=== PATIENT | male | born 1950 | race Caucasian/White ===

== ENCOUNTER → 2017-08-08 | Outpatient (CLI) | payer OTHER ==
[2015-11-04 16:30] VITALS: BP 105/48
[~2017-08-08] MED LIST: ASCO100065 PO; CHOL10003 PO; CIPR500T94 PO; CYAN50LO PO; FERR-36 PO
--- NOTE | 2017-08-08 15:33 | KCIC ---
MRI of the cervical spine without contrast 08/08/2017 CLINICAL HISTORY: Neck pain which radiates down the left arm. TECHNIQUE: Unenhanced T1-weighted, T2-weighted and inversion recovery sagittal and gradient echo and T2-weighted axial images of the cervical spine were obtained. FINDINGS: Minimal lateral curvature of the cervical spine is seen convex to the right. There is mild straightening of the normal cervical lordosis. Degenerative signal changes are seen involving all of the disks of the cervical spine. Degenerative signal changes are seen within the marrow surrounding these discs. A 4 mm hemangioma is seen involving the C3 vertebral body. The cervical spinal cord is normal in morphology, position, and signal characteristics. At the C2-3 disc space there is a minimal generalized disc bulge. Degenerative changes are seen involving the uncovertebral and facet joints bilaterally. These findings do not result in significant central spinal canal or neural foraminal stenosis. At the C3-4 disc space there is a mild generalized disc bulge. Degenerative changes are seen involving the uncovertebral and facet joints, left greater than right. These findings do not result in significant central spinal canal stenosis. Mild left neural foraminal stenosis is seen. The right neural foramen is patent. At the C4-5 disc space there is a mild generalized disc bulge. Degenerative changes are seen involving the uncovertebral and facet joints, left greater than right. These findings do not result in significant central spinal canal stenosis. Mild left neural foraminal stenosis is seen. The right neural foramen is patent. At the C5-6 disc space there is a mild generalized disc bulge. Degenerative changes are seen involving the uncovertebral and facet joints, left greater than right. These findings do not result in significant central spinal canal stenosis. Mild left neural foraminal stenosis is seen. The right neural foramen is patent. At the C6-7 disc space there is a mild generalized disc bulge. Degenerative changes are seen involving the uncovertebral and facet joints, left greater than right. These findings when combined do not result in significant central spinal canal or neural foraminal stenosis. At the C7-T1 disc space there is a minimal generalized disc bulge. Degenerative changes are seen involving the uncovertebral and facet joints bilaterally. These findings do not result in significant central spinal canal or neural foraminal stenosis. IMPRESSION: Degenerative changes are seen involving the cervical spine. These findings do not result in significant central spinal canal stenosis at any level. Mild left neural foraminal stenosis is seen at C3-4, C4-5 and C5-6. Electronically signed by: Quan Kinney MD (08/08/2017 3:30 PM) [facility]
== END | disposition home or self-care (01) ==
LOC: KCIC MRI 09:43
PROVIDERS: ATTEND Family Medicine
DX: M54.12 Radiculopathy, cervical region (principal); M48.02 Spinal stenosis, cervical region
CPT/HCPCS: 72141

== ENCOUNTER 2018-11-15 10:25 | Inpatient (IN) | payer OTHER ==
[~2018-11-15] VITALS: Ht 177.8 cm; Wt 54.9 kg
[2018-11-15 12:16] VITALS: BP 139/62
--- NOTE | 2018-11-15 13:48 | HP ---
ADMIT DATE: 11/15/2018 HISTORY OF PRESENT ILLNESS: The patient is a 68-year-old male patient, who was seen originally at [facility] with a complaint of weight loss over the last several months. His weight has been around 140 throughout his life and has been stable around 130 lately and then he lost. As of yesterday, his weight was down to 119. Has generalized weakness and pain. He has shortness of breath, but has also had cough. His sternum is painful, has also constipation. He has had a CT scan of the chest and abdomen and pelvis. The patient has been bedridden, has difficulty moving around. He has extreme tightness in his groin bilaterally, in the upper thighs and inguinal area, making difficult for him to walk. He apparently was extensively investigated and has had a CT scan of the abdomen and pelvis. The CT scan of the chest with PE protocol showed no evidence of pulmonary emboli. There are new small left and trace right pleural effusions, irregular opacity with air bronchogram in the left upper lobe that is stable, he has moderate central lobular emphysema. New mild consolidation in the posterior right lower lobe is probably atelectasis. He has had a bone scan, which basically showed that the patient has diffuse increased uptake seen involving the sternum, anterior ribcage, costal cartilage and the sternoclavicular joints and medial aspect of the clavicle corresponding to the chest CT finding. The chest CT finding demonstrates expansion of the sternum with cortical thinning; therefore, this may be seen with Paget's disease. In retrospect, CT study of the pelvis demonstrates small radiolucent lesions of the iliac bones bilaterally, no abnormal uptake is seen on the bone scan; however, multiple myeloma or early osseous metastatic disease may not demonstrate increased uptake on bone scan, MRI study of the pelvis without contrast may be helpful to evaluate for infiltrative process of the pelvic bone versus osteoporosis. His chest x-ray showed that the patient has emphysema with pleural parenchymal scarring on the left, his old healed granulomatous disease in the anterior chest, mild left suprahilar opacities are better delineated on the recent CT scan. He has had lab work which showed a serum sodium 134, potassium 4.1, chloride 96, bicarbonate 28, anion gap of 10, BUN 11, creatinine 0.7, estimated GFR was 111 and glucose was 138, lactic acid is 1.4, calcium was 8.9. Total bilirubin, AST, ALT, alkaline were normal. C-reactive protein was extremely high at 178 mg/dL. Total protein was 7.4, albumin 2.2. Procalcitonin was less than 0.1. TSH was 5.775. His serum sodium was 131, potassium 4.1, chloride 94. His urinalysis essentially showed the urine was annalise-clear; negative for glucose, bilirubin; trace of ketones; specific gravity was 1.020; the pH was 6 with small amount for protein; negative for nitrite and leukocyte esterase; there are no rbc's and no wbc's. His D-dimer was high at 1.15 mg/dL. His white cell count was 12,100; hemoglobin 12; hematocrit 36; MCV 87; and platelet count of 426,000. The patient was transferred to [facility] for further evaluation and treatment. I will obviously consult the wind turbine performance engineer, oncologist and urologist as well as tour sales representative. I will arrange for him to have a pelvic MRI without contrast. PAST MEDICAL HISTORY: Significant for COPD as well as benign prostatic hypertrophy. He has also elevated PSA, although he has multiple biopsies of his prostate for prostate cancer, were negative, the last one was done by his urologist last August at [facility]. He has about 29 specimens, all of them were negative for prostate cancer. PAST SURGICAL HISTORY: Surgical treatment of Achilles tendon rupture on the left side and multiple prostate biopsies. ALLERGIES: He has no known drug allergies. MEDICATIONS: He is currently on following medications: He is on ciprofloxacin 500 mg twice a day, ferrous sulfate 325 mg once a day, cyanocobalamin or vitamin B12 50 mcg daily, ascorbic acid 1000 mg daily and cholecalciferol 1000 international units once a day. FAMILY HISTORY: Unremarkable. SOCIAL HISTORY: He is , lives with his . He quit smoking only recently. He does not drink alcohol or do recreational drugs. He worked for [employer] for more than 20 years. He also worked for [employer] and currently works for [employer]. REVIEW OF SYSTEMS: The patient denied any blurring of vision, cataract, glaucoma or macular degeneration. Denied any earache, tinnitus or sensorineural deafness. Denied any nosebleeds, stuffy nose or postnasal drip. Denied any sore throat, sore tongue, toothache, hoarseness of voice or difficulty swallowing. Denied any nausea, vomiting, or diarrhea, but did complain of constipation. Denied any hematemesis, melena or hematochezia. Denied any dysuria, frequency or hematuria. He did complain of chest pain, mostly in the lower sternum which is very tender to touch, but denied any orthopnea or paroxysmal nocturnal dyspnea. Denied any cough, phlegm or hemoptysis. Denied any chills, rigors or fever. PHYSICAL EXAMINATION: GENERAL: When I examined him this afternoon, he looked well and was clearly in no apparent respiratory distress. No pallor, jaundice, cyanosis, or thyromegaly. No jugular venous distension. No lower limb edema. VITAL SIGNS: His heart rate was 72, blood pressure was 139/62, temperature was 97.5, respiratory rate was 24, and oxygen saturation was 95% on 2 liters of oxygen. HEAD, EYES, EARS, NOSE AND THROAT: Showed normocephalic, atraumatic. NECK: Supple, with no lymphadenopathy, no thyromegaly. No jugular venous distension, no audible bruit. HEART: Showed normal first and second heart sounds. No gallop or murmur. CHEST: Shows central trachea, equally reduced expansion, reduced air entry, vesicular sounds. I could not appreciate any crepitation or rhonchi. ABDOMEN: Slightly distended, soft, nontender. No guarding or rigidity. No organomegaly. All hernial orifices intact. Bowel sounds normal. NEUROLOGIC: He is awake, alert, responding appropriately. All cranial nerves intact. He moves extremities without difficulty. He is very weak and easily fatigued, but he normally ambulates without assistance or assistive devices. LABORATORY DATA: His lab work and all imaging studies are in the beginning of this report. IMPRESSION: In summary, this is a 68-year-old male patient who was admitted with extreme weakness and easy fatigability, weight loss and has elevated PSA, has enlarged prostate; however, multiple biopsies done at different times were negative for prostate cancer. His CT scan of the chest with PE protocol showed that the lower end of the sternum is expanding with thin cortex, consistent with possible Paget's disease; however, he has also some abnormal finding in the pelvic bones without any uptake by the radioisotope that would be consistent with multiple myeloma or metastatic disease. PLAN: My plan is to consult the urologist, wind turbine performance engineer, as well as tour sales representative and repeat his labs again tomorrow. We will continue with his Flomax, his IV fluid and also start DVT prophylaxis in the form of Lovenox or SCDs. LUCIE AGUIRRE MD DR: ARJUN/dwight JOB#: [id number] / [id number]
--- NOTE | 2018-11-15 13:52 | PDOC2 ---
ADAM SOARES SHAMIR 11/15/18 1352: UROLOGY CONSULT Date of Consult Date of Consult DATE: 11/15/18 TIME: 13:38 Identification/Chief Complaint Chief Complaint Patient was transferred from [place] for the Source Source: Chart review, Patient History of Present Illness Reason for Visit: This 68 year old male was admitted to [place] for weight loss, shortness of breath and generalized weakness. He was transferred here by Dr. Chatterjee for further workup. Urology was consulted for a PSA of 20.5 on 11/14/18 done at [place]. Per the patient, his PSA range is anywhere between 17 and 22. For this, he has been seeing a Urologist in [place] for the past 5 years and has had 4-5 prostate biopsies done,all of which have been negative. He is just about due for his yearly Urology exam. To his knowledge, he has never had an MRI of his prostate. Despite his high PSA's he does not have significant LUTS. He has some mild nocturia, getting up 1-2 times at night, but denies incomplete emptying, difficulty with his stream, daytime frequency, dysuria or hematuria. His father did have prostate cancer and is not sure what his mother had, but thinks it may have been bladder cancer. He denies a history of kidney stones and denies lower abd/flank pain. Most of his pain is currently in his sternum and he does feel SOB at rest despite NC 02 supplementation. Past Medical History Renal/: Benign prostatic enlarg. Social History <1 pack per day ALCOHOL: none Drugs: None Lives: with Family Current Problem List Problems: (1) Elevated PSA Current Medications Current Medications Current Medications Docusate Sodium (Colace) 100 mg BID PO ; Start 11/15/18 at 21:00 Enoxaparin Sodium (Lovenox 40mg Syringe) 40 mg Q24H SQ ; Start 11/15/18 at 13:00 Multivitamins (Thera M Plus) 1 tab DAILY PO ; Start 11/16/18 at 09:00 Polyethylene Glycol (miraLAX PACKET) 17 gm DAILY PO ; Start 11/16/18 at 09:00 Tamsulosin HCl (Flomax) 0.4 mg QHS PO ; Start 11/15/18 at 21:00 Allergies Allergies: Coded Allergies: No Known Drug Allergies (Unverified , 11/04/15) ROS Review Of Systems: CONSTITUTIONAL: No fever or chills EYES: No recent changes SKIN: No rash or itching CARDIOVASCULAR: No chest pain, syncope, palpitations, or edema RESPIRATORY: + SOB at rest GASTROINTESTINAL: No nausea, vomiting or abdominal pain NEUROLOGICAL: No headaches or weakness ENDOCRINE: No cold or heat intolerance GENITOURINARY: No urgency or frequency of urination, + hx elevated PSA MUSCULOSKELETAL: No back pain or joint pain LYMPHATICS: No enlarged lymph nodes PSYCHIATRIC: No anxiety or depression Physical Exam Physical Exam: General: Pleasant, no acute distress, well groomed Eyes: conjunctiva anicteric, eyes full range of motion ENT: moist oral mucosa, normal dentition Neck: Trachea midline, no masses Respiratory: regular respirations, NC in place. Barrel shaped chest Abdomen: nontender, nondistended, no hepatosplenomegaly, no masses : Circ phallus, WNL. MARU 60 g prostate Skin: + moles on sternum, one is quarter sized Psych: normal mood, affect. Alert and oriented x 3. Vitals VITALS Vital Signs Date Time Temp Pulse Resp B/P (MAP) Pulse Ox O2 Delivery O2 Flow Rate FiO2 11/15/18 12:16 97.5 72 24 139/62 (87) 95 Nasal Cannula 2.0 97.5 Assessment/Plan Assessment/Plan Elevated PSA 20.5 (range of 17-22 per patient report) with history of 4-5 negative prostate biopsies Bone scan done at [place] shows no abnormal uptake seen on the pelvis in the bone scan. CT demonstrates small radiolucent lesions of the iliac bones bilaterally. Dr. Chatterjee has already ordered MRI of the pelvis, agree.[facility] does not have necessary equipment do to an MRI of the prostate. Continue Flomax while in house Dr. Jimenez aware of patient and will see him later today or tomorrow. IAM JIMENEZ MD 11/17/18 1610: UROLOGY CONSULT Assessment/Plan Assessment/Plan Agree with assessment and plan. See note from 11/17. ADAM SOARES APRN Nov 15, 2018 13:52 IAM JIMENEZ MD Nov 17, 2018 16:10
[2018-11-15 15:00] VITALS: BP 131/64
--- NOTE | 2018-11-15 18:01 | PDOC2 ---
CONSULT Date of Consult Date of Consult DATE: 11/15/18 TIME: 17:59 He is a 68-year-old man with weight loss and sternal pain and bone findings concerning for Paget's versus malignancy versus other and is currently getting an MRI of the pelvis. He was not available for me to evaluate today, I will return on Sunday morning, if anything is needed over the weekend please don't hesitate to call the on-call physician however I would recommend based on his imaging after MRI of the pelvis is done to consult IR for biopsy potentially of the sternum or something else that they may determine best based on imaging ( bone marrow if myeloma labs +), I will also order SPEP with BENNY, kappa lambda chains, quantitative immunoglobulins and defer the rest of his care to primary at the moment. Would also recommend quitting smoking but again I will see him on Sunday to finish evaluation. Thank you kindly, and again please don't hesitate to call with any further questions. Past Medical History Renal/: Benign prostatic enlarg. Social History <1 pack per day ALCOHOL: none Drugs: None Lives: with Family Current Medications Current Medications Current Medications Enoxaparin Sodium (Lovenox 40mg Syringe) 40 mg Q24H SQ ; Start 11/15/18 at 13:00 Docusate Sodium (Colace) 100 mg BID PO ; Start 11/15/18 at 21:00 Polyethylene Glycol (miraLAX PACKET) 17 gm DAILY PO ; Start 11/16/18 at 09:00 Tamsulosin HCl (Flomax) 0.4 mg QHS PO ; Start 11/15/18 at 21:00 Multivitamins (Thera M Plus) 1 tab DAILY PO ; Start 11/16/18 at 09:00 Active Scripts Active Reported Vitamin B-12 (Cyanocobalamin (Vitamin B-12)) 50 Mcg Lozenge 50 Mcg PO DAILY Iron (Ferrous Sulfate) 325 Mg Tablet 325 Mg PO DAILY Cipro (Ciprofloxacin Hcl) 500 Mg Tablet 1 Tab PO BID Vitamin C (Ascorbic Acid) 1,000 Mg Tab.chew 1,000 Mg PO DAILY Vitamin D3 (Cholecalciferol (Vitamin D3)) 1,000 Unit Tablet 1 Tab PO DAILY Allergies Allergies: Coded Allergies: No Known Drug Allergies (Unverified , 11/04/15) Vitals VITALS Vital Signs Date Time Temp Pulse Resp B/P (MAP) Pulse Ox O2 Delivery O2 Flow Rate FiO2 3/15/19 15:00 97.4 79 18 131/64 (86) 97 Nasal Cannula 2.0 97.4 SUKH CARBAJAL MD Nov 15, 2018 18:01
[2018-11-15] MEDS: ENOXAPARIN 40 MG/0.4 ML SYRINGE. SQ SCH (18:34)
--- NOTE | 2018-11-15 18:34 | NUR ---
LOVENOX NOT GIVEN, PATIENT STATED HE ALREADY RECEIVED A DOSE AT [facility].
[2018-11-15 19:00] VITALS: BP 136/62
[2018-11-15] MEDS ORDERED: HYDROcodone/APAP 5/325MG 1 TAB TABLET PO PRN (19:45)
[2018-11-15] MEDS ORDERED: guaiFENesin DM 200MG/20MG 10 ML SYRUP PO PRN (19:45)
[2018-11-15] MEDS ORDERED: ACETAMINOPHEN 325 MG TABLET. PO PRN (19:45)
[2018-11-15] MEDS ORDERED: ALBUTEROL SULFATE 2.5 MG/3 ML NEBU. NEB PRN (20:45)
[2018-11-15] MEDS: TAMSULOSIN 0.4 MG CAP.ER.24H. PO SCH (20:46)
[2018-11-15] MEDS: DOCUSATE SODIUM 100 MG CAPSULE. PO SCH (20:46)
[2018-11-15] MEDS: ZOLPIDEM 5 MG TABLET. PO PRN (20:46)
[2018-11-15] MEDS: IPRATRPIUM/ALBUTEROL 0.5/2.5MG 3 ML NEBU. NEB SCH (21:17)
[2018-11-15 23:00] VITALS: BP 138/65
[2018-11-16 03:00] VITALS: BP 132/62
[2018-11-16 03:03] LABS: BASO % 0 % (0-3); EOS # 0.1 x10^3/uL (0.0-0.7); EOS % 1 % (0-3); HEMATOCRIT 36.4 % (39.0-53.0); HEMOGLOBIN 11.8 g/dL (13.0-17.5); LYMPH # 0.9 x10^3/uL (1.0-4.8); LYMPH % 8 % (24-48); MEAN CORPUSCULAR HEMOGLOBIN 29 pg (25-35); MEAN CORPUSCULAR HGB CONC 32 g/dL (31-37); MEAN CORPUSCULAR VOLUME 88 fL (79-100); MONO # 0.8 x10^3/uL (0.0-1.1); MONO % 7 % (0-9); NEUT # 9.4 x10^3uL (1.8-7.7); NEUT % 83 % (31-73); PLATELET COUNT 438 x10^3/uL (140-400); RED BLOOD COUNT 4.14 x10^6/uL (4.30-5.70); RED CELL DISTRIBUTION WIDTH 14.1 % (11.5-14.5); WHITE BLOOD COUNT 11.3 x10^3/uL (4.0-11.0)
[2018-11-16 03:36] LABS: ALBUMIN 1.9 g/dL (3.4-5.0); ALBUMIN/GLOBULIN RATIO 0.4 (1.0-1.7); CALCIUM 8.7 mg/dL (8.5-10.1); CREATININE 0.6 mg/dL (0.7-1.3); GFR 133.6; POTASSIUM 3.8 mmol/L (3.5-5.1); TOTAL BILIRUBIN 0.3 mg/dL (0.2-1.0); TOTAL PROTEIN 7.2 g/dL (6.4-8.2)
[2018-11-16 07:00] VITALS: BP 129/59
[2018-11-16] MEDS: IPRATRPIUM/ALBUTEROL 0.5/2.5MG 3 ML NEBU. NEB SCH ×4 (08:02→19:07)
[2018-11-16] MEDS: DOCUSATE SODIUM 100 MG CAPSULE. PO SCH ×2 (08:23→20:56)
[2018-11-16] MEDS: POLYETHYLENE GLYCOL 3350 17 GM PACKET. PO SCH (08:23)
[2018-11-16] MEDS: MULTIVITAMIN with MINERAL TABLET. PO SCH (08:23)
[2018-11-16 10:44] VITALS: BP 117/75
--- NOTE | 2018-11-16 13:06 | PN ---
DATE: 11/16/2018 SUBJECTIVE: The patient is sitting in his chair, eating his lunch comfortably, in no apparent distress. He denied any pain. He was seen yesterday by the Urology team as well as the oncologist. Has had an MRI done; however, there is no report available. PHYSICAL EXAMINATION: GENERAL: When I examined him this morning, he looked pale, clearly markedly cachectic, but not jaundiced or cyanosed from thyromegaly. No jugular venous distention. No lower limb edema. VITAL SIGNS: His heart rate was 78, blood pressure was 117/75, temperature was 97.4, respiratory rate was 20 and oxygen saturation was 97% on 2 liters of oxygen. HEENT: Examination of the head, eyes, ears, nose and throat showed normocephalic, atraumatic. NECK: Supple. HEART: Showed normal first and second heart sounds. No gallop, rub or murmur. CHEST: Clear to auscultation. No crepitation or rhonchi. ABDOMEN: Distended, soft and nontender. No guarding or rigidity. No organomegaly. All hernial orifices intact. Bowel sounds normal. NEUROLOGIC: He was awake, alert, responding appropriately. All cranial nerves intact. He moved extremities without difficulty, ambulated without assistance. His intake and output were incompletely recorded. LABORATORY DATA: His lab work as of yesterday showed a white cell count of 11,300, hemoglobin 12, hematocrit 36, MCV 88 and platelet count 438,000. His serum sodium was 135, potassium 3.8, chloride 96, bicarbonate 32, anion gap of 7, BUN 5, creatinine 0.6, estimated GFR was 133 mL per minute, his glucose was 110 and calcium was 8.7. Total bilirubin, AST, ALT and alkaline phosphatase were normal. His total protein was 7.2. Albumin was 1.9. His prostate specific antigen was 27.43, a normal range between 0-4. PLAN: Plan is obviously to await the lab result that was re-ordered by the oncologist and discuss the finding of the MRI and CT scan with the interventional radiologist to basically see if tissue biopsy can be obtained, especially as the patient has expanding lesion in his sternum that is very painful. LUCIE AGUIRRE MD DR: ARJUN/dwight JOB#: [id number] / [id number]
[2018-11-16] MEDS: ENOXAPARIN 40 MG/0.4 ML SYRINGE. SQ SCH (14:51)
[2018-11-16 14:58] VITALS: BP 127/59
[2018-11-16 19:00] VITALS: BP 136/66
[2018-11-16] MEDS: TAMSULOSIN 0.4 MG CAP.ER.24H. PO SCH (20:55)
[2018-11-16] MEDS: ZOLPIDEM 5 MG TABLET. PO PRN (20:56)
[2018-11-16 23:00] VITALS: BP 129/65
[2018-11-17 03:00] VITALS: BP 115/62
[2018-11-17 07:00] VITALS: BP 115/66
[2018-11-17] MEDS: IPRATRPIUM/ALBUTEROL 0.5/2.5MG 3 ML NEBU. NEB SCH ×4 (07:38→19:50)
[2018-11-17] MEDS: POLYETHYLENE GLYCOL 3350 17 GM PACKET. PO SCH (09:05)
[2018-11-17] MEDS: DOCUSATE SODIUM 100 MG CAPSULE. PO SCH ×2 (09:05→21:30)
[2018-11-17] MEDS: MULTIVITAMIN with MINERAL TABLET. PO SCH (09:05)
[2018-11-17 10:49] VITALS: BP 126/65
[2018-11-17] MEDS: ENOXAPARIN 40 MG/0.4 ML SYRINGE. SQ SCH (12:01)
--- NOTE | 2018-11-17 12:52 | RAD ---
Examination: MRI pelvis without contrast HISTORY: History of pain bilateral in the thigh for one week COMPARISON: None available TECHNIQUE: Multiplanar, multisequence MR imaging of the pelvis were performed without contrast FINDINGS: The attachment of the bilateral hamstring tendons to the ischial tuberosities grossly appears intact. The attachment of the iliopsoas tendon to the lesser trochanters and attachment of the rectus femoris tendon to the anterior inferior iliac spine grossly appears intact. The urinary bladder is mildly distended. Heterogenous moderately enlarged prostate gland. There is increased T2 signal with corresponding low T1 signal identified in the medial aspect of the bilateral superior and inferior pubic ramus could be stress reactive changes or nondisplaced fractures or post radiation changes (if there is history of radiation). The bilateral femoral heads are within the acetabula. Moderate degenerative changes bilateral hip joints. Diffuse decreased signal identified in the bone marrow on the T1-weighted images likely related to red bone marrow changes. IMPRESSION: 1. Increased T2 signal with corresponding low T1 signal identified in the medial aspect of the bilateral superior and inferior pubic ramus could be stress reactive changes or nondisplaced fractures or post radiation changes (if there is history of radiation). 2. Heterogeneous enlarged prostate gland. Correlate with PSA levels. Electronically signed by: Bunny Mcgrath MD (11/17/2018 12:50 PM) [facility]
[2018-11-17 14:36] VITALS: BP 129/64
--- NOTE | 2018-11-17 16:32 | PDOC ---
PROGRESS NOTE SUBJECTIVE: ROS: ROS: RESPIRATORY: Shortness of breath denies. Cough denies. UROLOGY: Denies blood in urine. Denies difficulty urinating HPI: No complaints at this time. OBJECTIVE: Vital Signs: Vital Signs Date Time Temp Pulse Resp B/P (MAP) Pulse Ox O2 Delivery O2 Flow Rate FiO2 11/17/18 14:36 97.7 77 18 129/64 (85) 95 Room Air 97.7 11/17/18 11:15 95 Room Air 11/17/18 10:49 97.6 76 18 126/65 (85) 93 Nasal Cannula 2.0 97.6 11/17/18 08:00 Nasal Cannula 2.0 11/17/18 07:38 98 Nasal Cannula 2.0 11/17/18 07:00 98.1 66 18 115/66 (82) 95 Nasal Cannula 2.0 98.1 11/17/18 03:00 97.8 67 18 115/62 (79) 96 Nasal Cannula 2.0 97.8 11/16/18 23:00 98.6 76 20 129/65 (86) 97 Nasal Cannula 2.0 98.6 11/16/18 20:08 Nasal Cannula 2.0 11/16/18 19:08 98 Nasal Cannula 2.0 11/16/18 19:00 98.7 80 20 136/66 (89) 93 Nasal Cannula 2.0 98.7 I & O Intake and Output 11/17/18 07:00 Intake Total 240 ml Balance 240 ml Intake Oral 240 ml # Voids 4 PHYSICAL EXAM: Physical Exam: General: Pleasant, no acute distress, well groomed Respiratory: unlabored breathing Psych: normal mood, affect. Alert and oriented x 3. LABS: Laboratory Tests Test 11/16/18 02:00 White Blood Count 11.3 x10^3/uL (4.0-11.0) Red Blood Count 4.14 x10^6/uL (4.30-5.70) Hemoglobin 11.8 g/dL (13.0-17.5) Hematocrit 36.4 % (39.0-53.0) Mean Corpuscular Volume 88 fL (79-100) Mean Corpuscular Hemoglobin 29 pg (25-35) Mean Corpuscular Hemoglobin Concent 32 g/dL (31-37) Red Cell Distribution Width 14.1 % (11.5-14.5) Platelet Count 438 x10^3/uL (140-400) Neutrophils (%) (Auto) 83 % (31-73) Lymphocytes (%) (Auto) 8 % (24-48) Monocytes (%) (Auto) 7 % (0-9) Eosinophils (%) (Auto) 1 % (0-3) Basophils (%) (Auto) 0 % (0-3) Neutrophils # (Auto) 9.4 x10^3uL (1.8-7.7) Lymphocytes # (Auto) 0.9 x10^3/uL (1.0-4.8) Monocytes # (Auto) 0.8 x10^3/uL (0.0-1.1) Eosinophils # (Auto) 0.1 x10^3/uL (0.0-0.7) Basophils # (Auto) 0.0 x10^3/uL (0.0-0.2) Sodium Level 135 mmol/L (136-145) Potassium Level 3.8 mmol/L (3.5-5.1) Chloride Level 96 mmol/L (98-107) Carbon Dioxide Level 32 mmol/L (21-32) Anion Gap 7 (6-14) Blood Urea Nitrogen 5 mg/dL (8-26) Creatinine 0.6 mg/dL (0.7-1.3) Estimated GFR (Cockcroft-Gault) 133.6 BUN/Creatinine Ratio 8 (6-20) Glucose Level 110 mg/dL (70-99) Calcium Level 8.7 mg/dL (8.5-10.1) Total Bilirubin 0.3 mg/dL (0.2-1.0) Aspartate Amino Transf (AST/SGOT) 11 U/L (15-37) Alanine Aminotransferase (ALT/SGPT) 11 U/L (16-63) Alkaline Phosphatase 83 U/L (46-116) Total Protein 7.2 g/dL (6.4-8.2) Albumin 1.9 g/dL (3.4-5.0) Albumin/Globulin Ratio 0.4 (1.0-1.7) Prostate Specific Antigen 27.43 ng/mL (0.00-4.00) MEDICATIONS: Current Medications Medications (Trade) Dose Ordered Sig/Marie Start Time Stop Time Status Last Admin Dose Admin Acetaminophen (Tylenol) 650 mg PRN Q6HRS PRN 11/15/18 19:45 Acetaminophen/ Hydrocodone Bitart (Lortab 5/325) 1 tab PRN Q4HRS PRN 11/15/18 19:45 Albuterol Sulfate (Ventolin Neb Soln) 2.5 mg PRN Q4HRS PRN 11/15/18 20:45 Albuterol/ Ipratropium (Duoneb) 3 ml RTQID 11/15/18 20:45 11/17/18 11:15 3 ML Docusate Sodium (Colace) 100 mg BID 11/15/18 21:00 11/17/18 09:05 100 MG Enoxaparin Sodium (Lovenox 40mg Syringe) 40 mg Q24H 11/15/18 13:00 11/17/18 12:01 40 MG Guaifenesin (Robitussin Dm) 10 ml PRN Q6HRS PRN 11/15/18 19:45 Multivitamins (Thera M Plus) 1 tab DAILY 11/16/18 09:00 11/17/18 09:05 1 TAB Polyethylene Glycol (miraLAX PACKET) 17 gm DAILY 11/16/18 09:00 11/17/18 09:05 17 GM Tamsulosin HCl (Flomax) 0.4 mg QHS 11/15/18 21:00 11/16/18 20:55 0.4 MG Zolpidem Tartrate (Ambien) 5 mg PRN QHS PRN 11/15/18 19:45 11/16/18 20:56 5 MG ASSESSMENT & PLAN Elevated PSA: Patient reports stable PSA arounf 20 for at least 10 years, with 5 -6 negative biopsies in past. Some of the biopsies were saturation biopsies under anaesthesia. He also reports a normal 4k score in past. Therefore, chance of prostate cancer is low. Can consider prostate MRI, but I would want to review his prior records in detail first to determine if that is necessary. He will either followup with his urologist in [place] or with me in the near future. Ok for discharge from urology perspective. IAM JIMENEZ MD Nov 17, 2018 16:32
[2018-11-17 19:00] VITALS: BP 121/61
--- NOTE | 2018-11-17 21:08 | PN ---
DATE: 11/17/2018 SUBJECTIVE: The patient is resting, slightly propped up in bed, no apparent distress. On questioning him, he denied any complaint. The nursing staff did not voice any concerns that he had an uneventful night. His lab work also showed that his PSA is high at 27.43. Kidney function, however, is normal. He has mild leukocytosis. He had an MRI of his pelvis. Unfortunately, for some reason it has not been read, although it was done about 2 days ago. We did consult the urologist and oncologist. He was seen by Dr. Ingram who ordered lab work, the result of which is still pending. PLAN: My plan is to continue with all his current medication and await the MRI report and perhaps to see if the interventional radiologist might be able to biopsy some of these abnormal finding in the pelvic bone and/or his sternum to confirm or refute the possibility of malignancy. LUCIE AGUIRRE MD DR: ARJUN/dwight JOB#: [id number] / [id number]
[2018-11-17] MEDS: ZOLPIDEM 5 MG TABLET. PO PRN (21:30)
[2018-11-17] MEDS: TAMSULOSIN 0.4 MG CAP.ER.24H. PO SCH (21:30)
[2018-11-17 23:00] VITALS: BP 137/66
[2018-11-18 03:00] VITALS: BP 120/53
[2018-11-18 05:01] LABS: C-REACTIVE PROTEIN 142.6 mg/L (0-3.3); CALCIUM 8.5 mg/dL (8.5-10.1); CREATININE 0.6 mg/dL (0.7-1.3); GFR 133.6
[2018-11-18 07:00] VITALS: BP 120/63
[2018-11-18] MEDS: IPRATRPIUM/ALBUTEROL 0.5/2.5MG 3 ML NEBU. NEB SCH (07:06)
[2018-11-18] MEDS: POLYETHYLENE GLYCOL 3350 17 GM PACKET. PO SCH (07:55)
[2018-11-18] MEDS: MULTIVITAMIN with MINERAL TABLET. PO SCH (07:55)
[2018-11-18] MEDS: DOCUSATE SODIUM 100 MG CAPSULE. PO SCH (07:55)
--- NOTE | 2018-11-18 09:21 | PDOC ---
ADAM SOARES WELL TENDER 11/18/18 0921: SUBJECTIVE Subjective Patient offered a follow up appointment with Dr. Jimenez yesterday and today which he has declined. He would like to just see his Urologist in [place] for follow up. He is feeling well today and is ready to discharge home. OBJECTIVE Objective General: Pleasant, no acute distress, well groomed Eyes: conjunctiva anicteric, eyes full range of motion ENT: moist oral mucosa, normal dentition Neck: Trachea midline, no masses Respiratory: regular respirations, NC in place. Barrel shaped chest Abdomen: nontender, nondistended, no hepatosplenomegaly, no masses Vital Signs Vital Signs Date Time Temp Pulse Resp B/P (MAP) Pulse Ox O2 Delivery O2 Flow Rate FiO2 11/18/18 08:00 Room Air 11/18/18 07:07 97 Room Air 11/18/18 07:00 97.6 77 18 120/63 (82) 91 Room Air 97.6 11/18/18 03:00 98.7 75 18 120/53 (75) 90 Room Air 98.7 11/17/18 23:00 98.5 79 18 137/66 (89) 90 Room Air 98.5 11/17/18 20:00 Room Air 11/17/18 19:50 92 Room Air 11/17/18 19:00 98.3 83 14 121/61 (81) 92 Room Air 98.3 11/17/18 16:37 Room Air 11/17/18 14:36 97.7 77 18 129/64 (85) 95 Room Air 97.7 11/17/18 11:15 95 Room Air 11/17/18 10:49 97.6 76 18 126/65 (85) 93 Nasal Cannula 2.0 97.6 I & O Intake and Output 11/18/18 06:59 Intake Total 720 ml Output Total 510 ml Balance 210 ml Intake Oral 720 ml Output Urine Total 510 ml PHYSICAL EXAM Physical Exam General: Pleasant, no acute distress, well groomed Eyes: conjunctiva anicteric, eyes full range of motion ENT: moist oral mucosa, normal dentition Neck: Trachea midline, no masses Respiratory: regular respirations, NC in place. Barrel shaped chest Abdomen: nontender, nondistended, no hepatosplenomegaly, no masses ASSESSMENT/PLAN Assessment/Plan Pt may discharge home whenever medical team is ready. Patient has declined follow up appointment with Dr. Jimenez. He was given Dr. Jimenez's card should he have any questions or change his mind. Will sign off at this time, but please call with questions or changes in patient condition. Problems: (1) Elevated PSA COMMENT Lab Laboratory Tests Test 11/18/18 03:55 Erythrocyte Sedimentation Rate 118 (0-15) Sodium Level 131 mmol/L (136-145) Potassium Level 4.0 mmol/L (3.5-5.1) Chloride Level 94 mmol/L (98-107) Carbon Dioxide Level 31 mmol/L (21-32) Anion Gap 6 (6-14) Blood Urea Nitrogen 8 mg/dL (8-26) Creatinine 0.6 mg/dL (0.7-1.3) Estimated GFR (Cockcroft-Gault) 133.6 Glucose Level 117 mg/dL (70-99) Calcium Level 8.5 mg/dL (8.5-10.1) C-Reactive Protein, Quantitative 142.6 mg/L (0-3.3) IAM JIMENEZ MD 11/18/18 1037: ASSESSMENT/PLAN Assessment/Plan Agree with assessment and plan. ADAM SOARES APRN Nov 18, 2018 09:21 IAM JIMENEZ MD Nov 18, 2018 10:37
--- NOTE | 2018-11-18 09:33 | PDOC ---
SUBJECTIVE Subjective Reason for consultation: Concern for cancer, please note heme/onc consult placed 18 November, as patient was not available for evaluation on 15 November Consult: Hematology oncology, Dr. Sukh Ingram History of present illness: He is a 68-year-old male who's been previously pretty healthy other than very elevated PSA with many biopsies negative for prostate cancer, PSA in the 20 range, was 27 while here, who was transferred over from [facility] due to shortness of breath and some pain, acute, moderate, lower abdomen, radiating up to sternal area, improved with bowel movements the pain was concerning over the sternum and CT findings showed expansile sternal lesion with cortical thinning and it was positive on bone scan and he also had some bilateral iliac lesions that on MRI pelvis do not sound too concerning for active malignancy though he tells me he's not having any sternal pain now, was having constipation pain that improved, and his shortness of breath is improved after nebulizers. He would really like to go home. Past medical history: BPH COPD Past surgical history: Multiple prostate biopsies Achilles rupture repair Allergies: No known drug allergies Medications: See attached list Social history: , has children and grandchildren, quit smoking during this admission Family history: Father with prostate cancer Review of systems: Shortness of breath, weakness, pain, trouble walking, constipation, all improved since being here, tells me he has no current trouble walking, and 10 pound weight loss Physical exam: Vitals reviewed Gen.: Thin elderly man in chair, in no acute distress HEENT: mucous membranes moist, head normocephalic atraumatic Neck: Supple, no lymphadenopathy Lymph nodes: No palpable lymphadenopathy neck or axilla Lungs: Breathing comfortably on room air, no evidence of respiratory distress Abdomen: Soft, nontender, nondistended Extremities: No cyanosis or edema Skin: No obvious rashes or skin breakdown, multiple moles and seborrheic keratoses Neuro: Alert and oriented 3 Psych: Normal mood and affect Lab reviewed: White count 3, hemoglobin 11.8, platelets 438 Creatinine 0.6 CRP 142 PSA of 27 Sodium of 131 SPEP and light chains and quantitative immunoglobulins and UPEP are pending Rads reviewed: Notes report a CT scan from [facility] showed radiolucent bilateral iliac lesions, no PE, small left and trace right pleural effusion, emphysematous changes, left upper lobe stable air bronchograms, expansile sternal lesion with cortical thinning Notes report a Bone scan with uptake diffusely at sternum and ribs and clavicle MRI pelvis showed stress changes versus nondisplaced fracture, versus post radiotherapy changes however he has not had radiotherapy and also heterogeneous enlarged prostate gland Case discussed with: Patient, his nurse, records reviewed in [facility], including labs and radiology, please see note for summary details. Assessment and Plan: He is a 68-year-old man with weight loss and sternal pain and bone findings concerning for Paget's versus malignancy versus other Sternal pain and shortness of breath: Improved with current treatment and bowel movements Tobacco abuse: He tells me he quit smoking this admission, I commend him Bone lesions: Offered a sternal biopsy, he'd like to wait for the myeloma screening labs first, I told him I'd be happy to have him follow-up with me as soon as the UPEP and SPEP and light chains and quantitative immunoglobulins return and we can further pursue biopsy at that time as needed Elevated PSA: PSA up to 27, MRI showing heterogeneous prostate, recommend continued follow-up with urology hyponatremia: Na of 131 today, defer to primary Disposition: Per others, we'll have him follow-up with us as an outpatient after d/c Thank you kindly for this consultation, and please don't hesitate to call with any further questions. OBJECTIVE Vital Signs Vital Signs Date Time Temp Pulse Resp B/P (MAP) Pulse Ox O2 Delivery O2 Flow Rate FiO2 11/18/18 08:00 Room Air 11/18/18 07:07 97 Room Air 11/18/18 07:00 97.6 77 18 120/63 (82) 91 Room Air 97.6 11/18/18 03:00 98.7 75 18 120/53 (75) 90 Room Air 98.7 11/17/18 23:00 98.5 79 18 137/66 (89) 90 Room Air 98.5 11/17/18 20:00 Room Air 11/17/18 19:50 92 Room Air 11/17/18 19:00 98.3 83 14 121/61 (81) 92 Room Air 98.3 11/17/18 16:37 Room Air 11/17/18 14:36 97.7 77 18 129/64 (85) 95 Room Air 97.7 11/17/18 11:15 95 Room Air 11/17/18 10:49 97.6 76 18 126/65 (85) 93 Nasal Cannula 2.0 97.6 I & O Intake and Output 11/18/18 07:00 Intake Total 720 ml Output Total 510 ml Balance 210 ml Intake Oral 720 ml Output Urine Total 510 ml COMMENT Lab Laboratory Tests Test 11/18/18 03:55 Erythrocyte Sedimentation Rate 118 (0-15) Sodium Level 131 mmol/L (136-145) Potassium Level 4.0 mmol/L (3.5-5.1) Chloride Level 94 mmol/L (98-107) Carbon Dioxide Level 31 mmol/L (21-32) Anion Gap 6 (6-14) Blood Urea Nitrogen 8 mg/dL (8-26) Creatinine 0.6 mg/dL (0.7-1.3) Estimated GFR (Cockcroft-Gault) 133.6 Glucose Level 117 mg/dL (70-99) Calcium Level 8.5 mg/dL (8.5-10.1) C-Reactive Protein, Quantitative 142.6 mg/L (0-3.3) SUKH INGRAM MD Nov 18, 2018 09:32
[2018-11-18 10:15] LABS: KAPPA LAMBDA RATIO 0.99 (0.26-1.65); LAMBDA FREE 48.3 mg/L (5.7-26.3)
--- NOTE | 2018-11-18 10:48 | NUR ---
pt discharged at 1040, pt left via private vehicle accompanied by , pt IV's discontinued without complications. pt educated about follow-up appointments and medications, no concerns voiced. pt left with all belongings.
--- NOTE | 2018-11-18 11:52 | DS ---
DATE OF DISCHARGE: 11/18/2018 HOSPITAL COURSE: The patient is a 68-year-old male patient who was admitted from [facility] with shortness of breath; some pain, acute, moderate, lower abdomen and radiating up to the sternal area. The pain was concerning over the sternum and CT finding showed extensive sternal lesion with cortical thinning. It was positive on bone scan. He also had some bilateral iliac lesion that on MRI pelvis did not sound too concerning for active malignancy, though he tells me that he is not having any sternal pain now. He was seen also by the urologist, and they offered to follow him and do an MRI of the prostate. The patient would prefer to follow with his own urologist at [facility], and as he remained stable, a decision was made to discharge her home to follow with Dr. Ingram as an outpatient for lab work that was done here. PHYSICAL EXAMINATION: GENERAL: When I saw him this morning, he was sitting on the edge of the bed comfortably in no apparent respiratory distress. No pallor, jaundice, cyanosis or thyromegaly. No jugular venous distention. No lower limb edema. VITAL SIGNS: His heart rate was 77, blood pressure was 120/63, temperature was 97.6, respiratory rate was 18 and oxygen saturation was 97% on room air. HEAD, EYES, EARS, NOSE AND THROAT: Showed normocephalic, atraumatic. NECK: Supple. HEART: Showed normal first and second heart sounds. No gallop, rub or murmur. CHEST: Shows central trachea, equally reduced expansion, reduced air entry. Vesicular breath sounds. I could not really appreciate any crepitation or rhonchi. ABDOMEN: Scaphoid, soft, nontender. NEUROLOGIC: He is awake, alert, responding appropriately. Cranial nerves intact. EXTREMITIES: He moves extremities without difficulty, ambulates without assistance or assistive devices. His intake over the last 24 hours and output were incompletely recorded. LABORATORY DATA: This morning showed a serum sodium 131, potassium 4, chloride 94, bicarbonate 31, anion gap of 6, BUN 8, creatinine 0.6, estimated GFR was 133 mL per minute, his glucose 117, calcium was 8.5. His prostate specific antigen was 27.43. His white cell count was 11,300, hemoglobin 12, hematocrit 36, MCV 88 and platelet count of 138,000. His sedimentation rate was 118 mm per hour and C-reactive protein was 142.6 mg/dL. DISCHARGE MEDICATIONS: The patient was discharged home to continue on following medications: Ascorbic acid 1000 mg daily, cholecalciferol vitamin D 1000 International Unit once a day, cyanocobalamin 50 mcg daily, ferrous sulfate 325 mg daily. He is also on Flomax 0.4 mg at bedtime. FINAL DISCHARGE DIAGNOSES: 1. Abnormal weight loss, sternal pain and upon finding concerning for Paget's versus malignancy versus other. 2. Shortness of breath due to advanced chronic obstructive pulmonary disease. 3. Benign prostatic hypertrophy with negative biopsies done multiple times. PLAN: For him to be discharged home, to follow with his urologist at [facility] and the oncologist as soon as his lab work become available. LUCIE AGUIRRE MD DR: ARJUN/dwight JOB#: [id number] / [id number]
[2018-11-18 16:15] LABS: COMMENT IMMUNOFIX SERUM Note: (.); IMMUNOGLOBULIN A 1402 mg/dL (61-437); IMMUNOGLOBULIN G 841 mg/dL (700-1600); IMMUNOGLOBULIN M 70 mg/dL (20-172)
[2018-11-18 17:13] LABS: ALBUM 2.2 g/dL (2.9-4.4); ALPHA 1 0.6 g/dL (0.0-0.4); BETA 1.4 g/dL (0.7-1.3); PROTEIN TOTAL 6.2 g/dL (6.0-8.5); SPEP AG RATIO 0.6 (0.7-1.7)
[2018-11-20 12:19] LABS: ALBUMIN UR 30.3 % (.); ALPHA 1 UR 3.1 % (.); BETA UR 29.2 % (.); GAMMA UR 15.3 % (.); PROTEIN 24 UR 331 mg/24 hr (30-150); PROTEIN UR 30.1 mg/dL (Not Estab.)
== END 2018-11-18 10:49 | disposition home or self-care (01) | DRG 190 ==
LOC: 5 SOUTH 12:00
PROVIDERS: ADMIT Internal Medicine; ATTEND Internal Medicine
DX: J44.9 Chronic obstructive pulmonary disease, unspecified (principal); E43 Unspecified severe protein-calorie malnutrition; E87.1 Hypo-osmolality and hyponatremia; R64 Cachexia; Z68.1 Body mass index [BMI] 19.9 or less, adult; K59.00 Constipation, unspecified; F17.210 Nicotine dependence, cigarettes, uncomplicated; D72.829 Elevated white blood cell count, unspecified; N40.0 Benign prostatic hyperplasia without lower urinary tract symptoms; Z74.01 Bed confinement status; Z80.42 Family history of malignant neoplasm of prostate; Z79.899 Other long term (current) drug therapy
CPT/HCPCS: 36415; 72195; 80048; 80053; 82784; 83520; 84165; 84166; 85025; 85651; 86140; 86334; 94640; 94760; G0103; J1650; J7620

== ENCOUNTER 2019-01-02 06:27 | Outpatient (CLI) | payer OTHER ==
[2019-01-02] VITALS (9 sets, daily range): BP systolic 92–131; BP diastolic 47–65
[~2019-01-02] VITALS: Ht 175.3 cm; Wt 52.6 kg
[2019-01-02 07:31] LABS: BASO # 0.1 x10^3/uL (0.0-0.2); BASO % 1 % (0-3); EOS # 0.2 x10^3/uL (0.0-0.7); EOS % 2 % (0-3); HEMATOCRIT 34.2 % (39.0-53.0); HEMOGLOBIN 11.5 g/dL (13.0-17.5); LYMPH # 1.2 x10^3/uL (1.0-4.8); LYMPH % 13 % (24-48); MEAN CORPUSCULAR HEMOGLOBIN 29 pg (25-35); MEAN CORPUSCULAR HGB CONC 34 g/dL (31-37); MEAN CORPUSCULAR VOLUME 87 fL (79-100); MONO # 0.6 x10^3/uL (0.0-1.1); MONO % 6 % (0-9); NEUT % 77 % (31-73); PLATELET COUNT 317 x10^3/uL (140-400); RED BLOOD COUNT 3.92 x10^6/uL (4.30-5.70); RED CELL DISTRIBUTION WIDTH 14.9 % (11.5-14.5); WHITE BLOOD COUNT 9.1 x10^3/uL (4.0-11.0)
[2019-01-02 07:39] LABS: PROTHROMBIN TIME PATIENT 13.8 SEC (11.7-14.0)
[2019-01-02] MEDS ORDERED: LIDOCAINE WITH 8.4% SOD BICARB 3 ML DISP.SYRIN. ONE (08:00)
[2019-01-02] MEDS ORDERED: TAMS0.4C97 PO (08:08)
[2019-01-02] MEDS ORDERED: IPRA3AMP29 NEB (08:08)
[2019-01-02] MEDS ORDERED: MIDAZOLAM HCL/PF 2 MG/2 ML VIAL. ONE (08:24)
[2019-01-02] MEDS ORDERED: fentaNYL PF VIAL 100 MCG/2 ML VIAL ONE (08:24)
[2019-01-02] MEDS ORDERED: fentaNYL PF VIAL 100 MCG/2 ML VIAL IV ONE (08:45)
[2019-01-02] MEDS ORDERED: MIDAZOLAM HCL/PF 2 MG/2 ML VIAL. IV ONE (08:45)
[2019-01-02] MEDS ORDERED: LIDOCAINE WITH 8.4% SOD BICARB 3 ML DISP.SYRIN. IJ ONE (08:45)
--- NOTE | 2019-01-02 08:45 | RAD ---
CT-guided bone marrow biopsy. 01/02/2019 8:40 AM Indication: MGUS Discussion: The risks and benefits of the procedure, including but not limited to, bleeding and infection were discussed patient. Informed consent was obtained. The patient was brought to the CT scanner and placed in the prone position. A timeout procedure was performed. Rapid Transit Operator CT imaging of the pelvis demonstrated left ilium amenable to bone marrow biopsy. The overlying soft tissues were prepped and draped using maximum sterile barrier technique. 1% lidocaine without epinephrine was administered for local anesthesia. Under intermittent CT guidance, an OncControl needle was advanced into the bone marrow of the left iliac crest. 2 Aspirates and 1 core biopsy samples were obtained. Samples were delivered to pathology was present at the time of procedure. The needle was removed and manual pressure held to achieve hemostasis. No immediate complications were identified. The procedure was performed under conscious sedation including continuous cardiopulmonary monitoring via dedicated sedation nurse. Sedation time: 20 minutes Impression: Successful CT-guided bone marrow biopsy of the left iliac crest . PQRS Compliance Statement: One or more of the following individualized dose reduction techniques were utilized for this examination: 1. Automated exposure control 2. Adjustment of the mA and/or kV according to patient size 3. Use of iterative reconstruction technique
--- NOTE | 2019-01-02 10:35 | NUR ---
DISCHARGE NOTES: Pt rested for 1 hr. Drank a cup of water. VSS. Pt walked to restroom w/o any problem. Dressing is clean, intact and dry. Discharge instructions including, med, activity, diet, and F/U was reviewed w/ pt and spouse. The pt and spouse verbalized understanding. IV was removed by this nurse. Belongings were returned to pt. Pt was taken out to lobby via W/C by this nurse
--- NOTE | 2019-01-09 11:09 | PATHOLOGY ---
[facility] Accession Number: [id number] . 01 Material submitted: . PART A: bone - BONE MARROW BIOPSY PART B: bone - BONE MARROW CLOT PART C: bone - BONE MARROW ASPIRATE SLIDES PART D: bone - PERIPHERAL BLOOD SMEAR PART E: bone - BONE MARROW FLOW . 01 Clinical history: . MGUS . 02 Diagnosis: Peripheral smear: - Mild normocytic normochromic anemia. . Bone marrow, aspirate smears, clot sections, and core biopsy: - Essentially normocellular marrow showing trilineage hematopoiesis, no significant dyspoiesis, and mild polyclonal plasmacytosis. - Increased reticuloendothelial iron stores. LBQ/01/08/2019 . 02 Comment: The peripheral smear shows a mild normocytic normochromic anemia. The bone marrow is essentially normocellular and shows trilineage hematopoiesis, no significant dyspoiesis, and a mild plasmacytosis. Plasma cells overall appear to comprise between 5% and 10% of nucleated marrow cells. Bone marrow submitted for flow cytometric analysis shows a polyclonal plasma cell population. In situ hybridization for kappa and lambda light chains is also performed on the clot sections and bone marrow biopsy and also show a polyclonal population of plasma cells. (JPM/db; 01/08/2019) . Special stains: iron stains performed on C1, B1, B2 and B3 and a reticulin stain performed on A1 . 02 Electronically signed: . Moses Kaur MD, Pathologist NPI- [id number] . 01 Gross description: . A. Received in formalin labeled "[place], BM BX," is a single needle core of gallardo bone measuring 0.8 cm in length and 0.3 cm in diameter. The specimen is submitted entirely in cassette A1, following decalcification. . B. Received in formalin labeled "[place], BM Asp clot," is an aggregate of dark gallardo blood clot measuring 4.5 x 2.9 x 0.7 cm. The specimen is filtered and entirely submitted in cassette B1 through B3. (TSD; 01/02/2019) TOB/TOB . 02 Microscopic: . Laboratory Data: The WBC count is 9.1 K/CMM, and the automated WBC differential reveals 77% neutrophils, 13% lymphs, 6% monos, 2% eos, and 1% baso. The RBC count is 3.92 M/CMM, hemoglobin 11.5 G/DL, hematocrit 34.2%, MCV 87 FL, MCH 29 PG, MCHC 34 G/DL, and the RDW is 14.9%. The platelet count is 317 K/CMM. Additional laboratory studies were obtained in November 2018. Serum protein electrophoresis revealed an M-spike of 0.2 G/DL in the beta region, and an M-spike of 0.1 G/DL in the gamma region. The total protein was 7.2 G/DL, albumin 1.9 G/DL, and globulin 5.3 G/DL. Serum immunofixation revealed an IgA monoclonal protein with kappa light chain specificity in the beta region, and an apparent monoclonal free kappa light chain. The ESR was 118, and CRP was 142.6 MG/L. Urine immunofixation revealed an apparent normal immunofixation pattern. The serum IgG was 841 MG/DL, IgA 1402 MG/DL, and IgM 70 MG/DL. The free kappa light chain was 48.0 MG/L, lambda free light chain 48.3 MG/L, and the kappa lambda free light chain ratio was 0.99. . Peripheral Smear: The peripheral smear is reviewed. The WBC count is normal. The WBC differential reveals a predominance of segmented neutrophils, with smaller populations of lymphocytes and monocytes and occasional eosinophils and basophils noted. Neutrophils do not show dysplastic changes. There is no significant neutrophilic left shift. There are no circulating blasts. There is no leukoerythroblastic reaction. The lymphocyte population consists predominantly of small lymphocytes. There are no circulating plasma cells. Red blood cells appear normochromic and normocytic and show no significant anisopoikilocytosis. There is no evidence of red blood cell rouleaux. Platelets appear normal in number and morphology. . Aspirate Smears: Two Carrera's-stained and one iron-stained aspirate smears are examined. The smears contain several marrow particles. In one of the smears, the marrow particles are hypocellular. The other smear reveals normocellular marrow particles. The M/E ratio overall is within normal range. Erythroid maturation appears normoblastic. There are no megaloblastic or overt dysplastic changes. Granulopoiesis qualitatively appears normal. There are no obvious dysplastic changes. There is no increase of blasts. Megakaryocytes appear adequate in number and are of variable ploidy. There are foci of mild plasmacytosis showing up to approximately 5-6% plasma cells. Other areas show a smaller proportion of plasma cells. The plasma cells have a relatively mature appearance. Lymphocytes are not increased. There are no cells foreign to the marrow. The iron stain shows increased iron stores. No ringed sideroblasts are identified. . Bone Marrow Biopsy and Clot Sections: Sections of the bone marrow biopsy reveal a segment of bone marrow which is on the order of 10-20% cellular. The clot sections contain multiple marrow particles, the majority of which range between 10% and 30-40% cellular. The marrow shows a good admixture of erythroid and granulocytic precursors, which are present in varying stages of maturation. There is no apparent increase of blasts. Megakaryocytes appear adequate in number and are of variable ploidy. There are scattered admixed plasma cells, which focally appear aligned along blood vessels. There are no solid nodules or areas of sheet-like replacement by plasma cells. The plasma cells have a relatively mature appearance. There are no abnormal lymphoid aggregates, granulomas, or cells foreign to the marrow. Immunoperoxidase stains for CD138 and in situ hybridization for kappa and lambda light chain are obtained on the biopsy and clot sections and yield the following results: . CD138 (A1): Plasma cells positive scattered throughout marrow and focally aligned along blood vessels; plasma cells comprise approximately 5-10% of nucleated marrow cells . Makakilo and lambda MOIZ (A1): Plasma cells appear polyclonal . CD138 (B1): Plasma cells positive scattered throughout marrow and focally aligned along blood vessels . CD138 (B2): Plasma cells positive scattered throughout marrow and focally aligned along blood vessels; plasma cells overall comprise between 5% and 10-15% of nucleated marrow cells . Makakilo and lambda MOIZ (B2): Plasma cells appear polyclonal . CD138 (B3): Plasma cells positive scattered throughout marrow and focally aligned along blood vessels . A reticulin stain obtained on the bone marrow biopsy shows a focal mild increase of reticulin fibers. Iron stains obtained on the clot sections show mildly increased reticuloendothelial iron stores. No ringed sideroblasts are identified. . Special Studies: Bone marrow submitted for flow cytometry has a viability of 99.5%. Granulocytes comprise 87.9% of total cells and show a predominantly mature phenotype. Monocytes comprise 1.4% of total cells. CD45 dim, CD34 positive cells comprise 0.2% of total cells. Plasma cells are not increased and are polyclonal by cytoplasmic light chain analysis. Lymphocytes comprise 9.9% of total cells. T-cells comprise 85% of lymphoid cells and show a CD4/CD8 ratio of 6.3. NK-cells comprise 7% of lymphoid cells. Mature B-cells comprise 2% of lymphoid cells and are polyclonal with a kappa:lambda ratio of 1.3. (JPM:manager gaming:db; 01/07/2019) . 02 Pathologist provided ICD-10: D75.89, D64.9 . 02 CPT . 118435, 857229, 540786, 365103, 500629, 781175, 894442, 881024, 490622, 288745, I53201, I56002, T54675 Specimen Comment: A courtesy copy of this report has been sent to Specimen Comment: [phone], , , . Specimen Comment: Report sent to ,DR WILSON,DR WU / DR SOLOMON Performed at: 01 [facility] [address], [place] [id number] MD Yeyo Yun MD Phone: [phone] Performed at: 02 [facility] [address] [place], [place] [id number] MD Moses Kaur MD Phone: [phone]
== END 2019-01-02 10:30 | disposition home or self-care (01) ==
LOC: INTRAD 06:27
PROVIDERS: ATTEND Internal Medicine Hematology & Oncology
DX: D47.2 Monoclonal gammopathy (principal); D46.9 Myelodysplastic syndrome, unspecified; C92.10 Chronic myeloid leukemia, BCR/ABL-positive, not having achieved remission
CPT/HCPCS: 36415; 38222; 77012; 85025; 85610; 88184; 88185; 88237; 88305; 88311; 88313; 88342; 88364; 88365; 99152; J2250; J3010

== ENCOUNTER → 2019-02-04 | Day surgery (SDC) | payer OTHER ==
[~2019-02-04] MED LIST changes: +ALBUTEROL SULFATE 2.5 MG/3 ML NEBU. NEB PRN; +EPINEPHrine 1 MG/ML VIAL ONE; +IPRA3AMP29 NEB; +IV RINGERS,LACTATED 1000ML 1,000 ML IV SCH; +LIDOCAINE 1% Multi-Dose 20 ML VIAL. INJ PRN; +LIDOCAINE 1% Multi-Dose 20 ML VIAL. ONE; +LIDOCAINE 2% VISCOUS 100 ML BOTTLE. MM PRN; +LIDOCAINE 2% VISCOUS 100 ML BOTTLE. ONE; +LIDOCAINE 4% TOPICAL 50 ML SOLUTION. MM PRN; +LIDOCAINE 4% TOPICAL 50 ML SOLUTION. ONE; +PROPOFOL 10 MG/ML (20ML) VIAL. IV ONE; +PROPOFOL 20 ML IV ONE; +TAMS0.4C97 PO
[2019-02-04 14:09] VITALS: BP 108/53
--- NOTE | 2019-02-04 18:10 | OP ---
DATE OF SURGERY: 02/04/2019 ATTENDING PHYSICIAN: Dr. Priyank Diaz. PROCEDURE: Bronchoscopy, lavage, biopsy. INDICATIONS: The patient presented with possible postobstructive pneumonia, primary lung cancer, undergoing diagnostic bronchoscopy. Risks, benefits, and alternatives reviewed with the patient. He consented. SEDATION: Please see Anesthesia notes. DESCRIPTION OF PROCEDURE: A timeout was performed prior to sedation. Vital signs and O2 saturation were maintained within normal limits throughout the procedure. The bronchoscope was passed through an oral block. The vocal cords were identified. The bronchoscope was passed through the vocal cords into the proximal trachea, which was normal. The distal trachea was likewise normal. The right and left segments and subsegments were inspected. There was no endobronchial lesion on the right side. The mucosa leading up to the left upper lobe was abnormal. There were no endobronchial lesions. There was extrinsic compression of the lingula and the left upper lobe bronchus. The mucosa was abnormal. A biopsy of the abnormal mucosa was performed x 1. There was minimal amount of heme. A lavage of the same area was performed. The patient tolerated the procedure well with no immediate complications. FINDINGS: 1. Normal vocal cords. 2. No endobronchial lesion on the right. 3. Abnormal mucosa leading up to the lingula and left upper lobe bronchus. 4. Lavage and biopsy of that area was performed. PLAN: The patient is to follow up in the office next week, we will follow up on the lavage results and biopsy results. PRIYANK DIAZ MD DR: JONES/dwight JOB#: [id number] / [id number]
--- NOTE | 2019-02-05 14:07 | PATHOLOGY ---
[facility] Accession Number: [id number] . 01 Material submitted: . lung - BIOPSY LEFT UPPER LUNG. Modifiers: left, upper . 01 Clinical history: . ALVAREZ nodules . 02 Diagnosis: Bronchial mucosa and submucosa "biopsy left upper lobe": - Mild chronic bronchitis. - There is no evidence of malignancy. - See comment. ([facility] 02/05/2019) P/02/05/2019 . 02 Comment: This case is also reviewed by Dr. Bharati Yung. 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 Suggest clinical correlation. . . . . ([facility] 02/05/2019) . 02 Electronically signed: . Inderjit Licona MD, Pathologist NPI- [id number] . 01 Gross description: . Received in formalin labeled "Kobi, Moses, BBX ALVAREZ," are 2 minute segments of gallardo soft tissue measuring 0.1 x 0.1 x 0.1 cm in aggregate dimensions. The specimen is filtered and entirely submitted in cassette A1. (TSD; 02/04/2019) TOB/TOB . 02 Pathologist provided ICD-10: J42 . 02 CPT . 680378 Specimen Comment: A courtesy copy of this report has been sent to Specimen Comment: [phone]. Specimen Comment: Report sent to Performed at: 01 [facility] [address], [place] [id number] MD Yeyo Yun MD Phone: [phone] Performed at: 02 [facility] [address] [place], [place] [id number] MD Moses Kaur MD Phone: [phone]
--- NOTE | 2019-02-05 16:06 | PATHOLOGY ---
[facility] Accession Number: [id number] TESTS RESULT FLAG UNITS REF RANGE LAB Clinician Provided Cytology Information No. of containers..01 Other (Miscellaneous) Source: ALVAREZ BAL DIAGNOSIS: ALVAREZ BAL NEGATIVE FOR MALIGNANT CELLS. NORMAL BRONCHIAL CELLS AND MACROPHAGES ARE PRESENT. Signed out by: Inderjit Licona MD, Pathologist NPI- [id number] Performed by: Rama Ye, Instructional Technology Facilitator ([facility]) Gross description: 01 15ML, RED, CLOUDY /LCS FLAG LEGEND: L-Low Normal,H-High Normal,LL-Alert Low,HH-Alert High <-Panic Low,>-Panic High,A-Abnormal,AA-Critical Abnormal Performed at: [address] [place] [address] Yeyo Yun MD, 02 [facility] [address] [place] [address] Moses Kaur MD, Specimen Comment: A courtesy copy of this report has been sent to Specimen Comment: [phone], . Specimen Comment: Report sent to / DR WU Specimen Comment: A duplicate report has been generated due to demographic updates. Performed at: [address] [place] [address] [address], [place], [place] [id number] MD Yeyo Yun MD Phone: [phone]
== END ==
LOC: SURG 11:20
PROVIDERS: ATTEND Internal Medicine Pulmonary Disease
DX: J42 Unspecified chronic bronchitis (principal)
CPT/HCPCS: 31624; 31625; 87015; 87070; 87116; 87205; 88112; 88305; 94640; J2704; 31622; J0171

== ENCOUNTER 2019-02-28 06:50 | Outpatient (CLI) | payer OTHER ==
[2019-02-28] VITALS (17 sets, daily range): BP systolic 104–139; BP diastolic 44–74
[~2019-02-28] VITALS: Ht 175.3 cm; Wt 56.2 kg
[~2019-02-28 06:50] MED LIST changes: -ALBUTEROL SULFATE 2.5 MG/3 ML NEBU. NEB PRN; -EPINEPHrine 1 MG/ML VIAL ONE; -IV RINGERS,LACTATED 1000ML 1,000 ML IV SCH; -LIDOCAINE 1% Multi-Dose 20 ML VIAL. INJ PRN; -LIDOCAINE 1% Multi-Dose 20 ML VIAL. ONE; -LIDOCAINE 2% VISCOUS 100 ML BOTTLE. MM PRN; -LIDOCAINE 2% VISCOUS 100 ML BOTTLE. ONE; -LIDOCAINE 4% TOPICAL 50 ML SOLUTION. MM PRN; -LIDOCAINE 4% TOPICAL 50 ML SOLUTION. ONE; -PROPOFOL 10 MG/ML (20ML) VIAL. IV ONE; -PROPOFOL 20 ML IV ONE
[2019-02-28 07:22] LABS: BASO # 0.1 x10^3/uL (0.0-0.2); BASO % 1 % (0-3); EOS # 0.2 x10^3/uL (0.0-0.7); EOS % 3 % (0-3); HEMATOCRIT 33.8 % (39.0-53.0); HEMOGLOBIN 11.2 g/dL (13.0-17.5); LYMPH # 1.4 x10^3/uL (1.0-4.8); LYMPH % 20 % (24-48); MEAN CORPUSCULAR HEMOGLOBIN 29 pg (25-35); MEAN CORPUSCULAR HGB CONC 33 g/dL (31-37); MEAN CORPUSCULAR VOLUME 89 fL (79-100); MONO # 0.6 x10^3/uL (0.0-1.1); MONO % 8 % (0-9); NEUT # 4.7 x10^3uL (1.8-7.7); NEUT % 68 % (31-73); PLATELET COUNT 313 x10^3/uL (140-400); RED BLOOD COUNT 3.81 x10^6/uL (4.30-5.70); RED CELL DISTRIBUTION WIDTH 14.2 % (11.5-14.5); WHITE BLOOD COUNT 6.9 x10^3/uL (4.0-11.0)
[2019-02-28 07:27] LABS: PROTHROMBIN TIME PATIENT 13.7 SEC (11.7-14.0)
[2019-02-28] MEDS ORDERED: LIDOCAINE WITH 8.4% SOD BICARB 3 ML DISP.SYRIN. ONE (08:17)
[2019-02-28] MEDS ORDERED: NALOXONE 0.4 MG/ML VIAL. ONE (08:59)
[2019-02-28] MEDS ORDERED: MIDAZOLAM HCL/PF 2 MG/2 ML VIAL. ONE (08:59)
[2019-02-28] MEDS ORDERED: fentaNYL PF VIAL 100 MCG/2 ML VIAL ONE (08:59)
[2019-02-28] MEDS ORDERED: FLUMAZENIL 0.5 MG/5 ML VIAL. IV ONE (08:59)
[2019-02-28] MEDS ORDERED: LIDOCAINE WITH 8.4% SOD BICARB 3 ML DISP.SYRIN. IJ ONE (09:15)
[2019-02-28] MEDS ORDERED: MIDAZOLAM HCL/PF 2 MG/2 ML VIAL. IV ONE (09:15)
[2019-02-28] MEDS ORDERED: fentaNYL PF VIAL 100 MCG/2 ML VIAL IV ONE (09:15)
--- NOTE | 2019-02-28 12:25 | NUR ---
pt A&O x3. denies pain, nausea or dizziness. VSS. Dressing on left back site has very small size previous drop of blood . tolerating po well. ambulated to BR w/o problem. no SOB noted. d/c instructions reviewed- out to vehicle per w/c- spouse to drive pt home.
--- NOTE | 2019-02-28 15:59 | RAD ---
Single view of the chest. 02/28/2019 11:32 AM Indication: Post lung biopsy Comparison: Intraprocedural imaging, earlier same day Findings: Left upper lobe consolidation is similar to comparison studies. Diffuse interstitial disease is similar. No pneumothorax is identified. No significant effusion is seen. Heart size is normal. No acute bony changes are identified. IMPRESSION:. 1. No pneumothorax following left lung biopsy 2. Left upper lung consolidation, similar to comparison study Electronically signed by: Warren Ortiz MD (02/28/2019 3:57 PM) [facility]
--- NOTE | 2019-03-03 16:05 | PATHOLOGY ---
[facility] Accession Number: [id number] . 01 Material submitted: . lung - LEFT UPPER LOBE MASS. Modifiers: left, upper lobe . 01 Clinical history: . Left upper lobe mass . 02 Diagnosis: Lung tissue, left upper lobe mass, needle biopsies: - Consistent with postobstructive pneumonia. See comment. . (JPM:mml; 03/03/2019) [facility]/03/03/2019 . 02 Comment: Sections of the left upper lobe mass needle biopsy reveal lung tissue showing extensive scarring. Within the scarring, there are irregular air spaces which appear to be lined by mildly atypical pneumocytes. There are focal foamy macrophages present within air spaces. The morphologic findings are supportive of the diagnosis of postobstructive pneumonia. There is no overt evidence of malignancy. The findings may not be phone representative of the lesion in question. Correlate clinically. The case is also examined by Dr. Mattie Goldsmith, who concurs with the diagnosis. . (JPM:mml; 03/03/2019) . 02 Electronically signed: . Moses Kaur MD, Pathologist NPI- [id number] . 01 Gross description: . The specimen is received in formalin, labeled "[place], left lung mass". Received are two needle cores of pale gallardo soft tissue ranging in length from 0.5 to 0.6 cm in length by 0.1 cm in diameter. The specimen is submitted entirely in cassette A1 and A2. ([facility]; 02/28/2019) QAC/QAC . 02 Pathologist provided ICD-10: J18.9 . 02 CPT . 201611 Specimen Comment: A courtesy copy of this report has been sent to Specimen Comment: [phone], , . Specimen Comment: Report sent to EMILY Saravia / DR WU Performed at: 01 [facility] [address], [place] [id number] MD Yeyo Yun MD Phone: [phone] Performed at: 02 [facility] [address] [place], [place] [id number] MD Moses Kaur MD Phone: [phone]
--- NOTE | 2019-03-18 14:53 | RAD ---
CT guided biopsy left upper lung consolidation. 03.18.19 Indication: Persistent PET avid consolidation, left upper lobe. Discussion: The risks and benefits of the procedure were discussed patient. Informed consent was obtained. The patient was brought to the CT scanner and placed in the prone position. A timeout procedure was performed. CT imaging of the chest redemonstrates the consolidation target for biopsy. The overlying soft tissues were prepped and draped using maximum sterile barrier technique. 1% lidocaine without epinephrine was administered for local anesthesia. Under intermittent CT guidance, an 17g needle was advanced into consolidation. Core biopsies were obtained. . The needle was removed and manual pressure held to achieve hemostasis. No immediate complications were identified. The procedure was performed under conscious sedation including continuous cardiopulmonary monitoring via dedicated sedation nurse. Face to face conscious sedation time. 18 MINUTES Impression: CT-guided biopsy left upper lobe consolidation. PQRS Compliance Statement: One or more of the following individualized dose reduction techniques were utilized for this examination: 1. Automated exposure control 2. Adjustment of the mA and/or kV according to patient size 3. Use of iterative reconstruction technique
== END 2019-02-28 12:25 | disposition home or self-care (01) ==
LOC: INTRAD 06:50
PROVIDERS: ATTEND Internal Medicine Pulmonary Disease
DX: J98.4 Other disorders of lung (principal); Z79.01 Long term (current) use of anticoagulants
CPT/HCPCS: 32405; 36415; 71045; 77012; 85025; 85610; 87071; 87075; 87102; 87116; 88305; 99152; J2250; J3010

== ENCOUNTER → 2019-09-09 | Outpatient (CLI) | payer MEDICARE, OTHER ==
[2019-02-28 12:05] VITALS: BP 118/64
--- NOTE | 2019-09-10 11:08 | RAD ---
Examination: CT CHEST WO CONTRAST History: Lung mass Comparison/Correlation: 01/09/2019 PET/CT exam, 05/07/[address] chest without contrast Findings: Axial images of the chest were obtained without contrast. Sagittal and coronal reformatted images were provided. Diffuse centrilobular emphysematous involvement of the lung soria is noted. The trachea and right bronchial tree are unremarkable. Left hilar, suprahilar process which abuts the mediastinum at the aortopulmonary window level is increased in size currently measuring 5 cm x 2.9 cm on axial image 25 of series 2. This compares to previous measurement of 2.8 cm x 2.6 cm. Posterior left apical atelectasis or scarring is noted with interstitial thickening. Calcified lateral left upper lung field adenomas present. Interstitial thickening of the left upper lobe at the anterior mid thoracic level stenosis present but similar to the prior exam. No new infiltrates. No pleural effusions in the interval. Minimal groundglass or other infiltrate involving right anterior mid thoracic level on axial image 38 of series 2 is unchanged. Diffuse body appearance of the distal clavicle is noted. The sternum is diffusely expansile and sclerotic in appearance. This is similar to previous exam. Correlate for possibility of Paget's disease or other underlying etiology. No bony destructive change. Ossification of costochondral cartilage diffusely is noted bilaterally. This is similar to the prior exam. Partially visualized upper abdomen is unremarkable. Bony structures are unremarkable for patient's age. Impression: Increased left hilar lobulated soft tissue density process size is noted. Atelectasis/scarring at the posterior left upper lung field is stable. No new process. Centrilobular emphysema. PQRS Compliance Statement: One or more of the following individualized dose reduction techniques were utilized for this examination: 1. Automated exposure control 2. Adjustment of the mA and/or kV according to patient size 3. Use of iterative reconstruction technique Electronically signed by: Erasmo Bunn MD (09/10/2019 11:06 AM) [facility]
== END | disposition home or self-care (01) ==
LOC: CT 12:54
PROVIDERS: ATTEND Internal Medicine Pulmonary Disease
DX: J43.2 Centrilobular emphysema (principal)
CPT/HCPCS: 71250

== ENCOUNTER → 2019-10-03 | Outpatient (CLI) | payer MEDICARE ==
[2019-02-28 12:05] VITALS: BP 118/64
[~2019-10-03] MED LIST changes: +REGADENOSON 0.4 MG/5 ML DISP.SYRIN. IV ONE
--- NOTE | 2019-10-06 11:58 | RAD ---
MR#: [id number] Date of Study: 10/03/2019 Ordering Physician: ALIYA NIELSEN, Referring Physician: DASHA POLANCO Tech: YADIRA Joya ARRT (R) (N) APPROVED REPORT Test Type: Pharmacological Stress Nurse/Tech: John Colvin RN Test Indications: A-fib Cardiac History: a-fib, COPD Medications: See Electronic Medical Record Medical History: See Electronic Medical Record Resting ECG: SR Resting Heart Rate: 72 bpm Resting Blood Pressure: 132/70mmHg Pretest Chest Pain: None Nurse/Tech Notes lungs CTA, S1S2 Consent: The procedure was explained to the patient in lay terms. Informed consent was witnessed. Chip eout was entered into [employer]. History and Stress Test performed by [employer]. Details Pharmacologic stress testing was performed using 0.4mg per 5ml of regadenoson given intravenously ove r 7-10 seconds. Stress Symptoms No chest pain or symptoms. POST EXERCISE Reason for Termination: Infusion complete Max HR: 90 bpm Max Blood Pressure: 133/64mmHg Blood Pressure response to exercise: Normal blood pressure response during stress. Heart Rate response to exercise: normal response Chest Pain: No. Arrhythmia: No. ST Change: No. INTERPRETATION Stress EKG Conclusion: Baseline EKG showed sinus rhythm. No ischemic changes at peak stress. No arr hythmias. Imaging Protocol IMAGE PROTOCOL: Rest Tc-99m/stress Tc-99m 1 day Rest: Stress: Viability: Radiopharm.Tc99m TgximghgzJn01l Sestamibi Wltx86iIv 33mCi Img Date 10/03/2019 10/03/2019 Inj-Img [id number]. 90min. Rest Admin Site:IV - Right AntecubitalAdministrator:YADIRA Joay ARRT (R)(N) Stress Admin Site: IV - Right AntecubitalAdministrator: [employer] STRESS DATA End Diast. Vol.117.0mlAv. Heart Rate58.0bpm End Syst. Vol.47.0mlCO Index BSA0.0L/min Myocardial Sejq789.0gEject. Uzjamdkx61.0% Stress Rates Pk. Fill Rate1.74EDV/secLVtime Pk. Fill 299.79msec Pk. Empty Rate2.89ESV/secLVtime Pk. Dcwke720.54msec 1/3 Pk. Fill0.64EDV/sec Stress Scores Regional WT0.00Summed WT13.00 Regional WM0.00Summed WM2.00 Study quality was good. Left Ventricular size was Normal at Rest and Stress. Lung uptake was . Left Ventricular ejection fraction is 60%. The rest and stress images show normal perfusion, normal contraction and thickening. LV Perf. Quant 17 Seg. SSS0.00 17 Seg. SRS2.00 17 Seg. SDS0.00 Stress Defect Extent (% LAD)0.00Rest Defect Extent (% LAD)0.00Rev. Defect Extent (% LAD)0.00 Stress Defect Extent (% LCX) 0.00Rest Defect Extent (% LCX)0.00Rev. Defect Extent (% LCX)0.00 Stress Defect Extent (% RCA)0.00Rest Defect Extent (% RCA)11.10Rev. Defect Extent (% RCA)0.00 Stress Defect Extent (% JORDON)0.00Rest Defect Extent (% JORDON)3.70Rev. Defect Extent (% JORDON)0.00 Conclusion 1. Regadenoson cardioisotope stress test did not show any evidence of ischemia or infarct. 2. Normal left ventricular systolic function with ejection fraction calculated at 60%. 3. Low risk for cardiac events. Signed by : Rivas Eli, Electronically Approved : 10/03/2019 11:21:50
== END | disposition home or self-care (01) ==
LOC: NM 07:05
PROVIDERS: ATTEND Internal Medicine Cardiovascular Disease
DX: R06.00 Dyspnea, unspecified (principal)
CPT/HCPCS: 78452; 93017; A9500; J2785

== ENCOUNTER → 2019-10-31 | Outpatient (CLI) | payer MEDICARE ==
[2019-10-24 10:48] VITALS: BP 142/68
[~2019-10-31] MED LIST changes: +ALPR0.254 PO; +AMOX1TAB10 PO; +APIX5TAB PO; +GABA300C9 PO; +GADOTERATE 7.5 MMOL/15ML VIAL. IVP ONE; +HYDR-2761 PO; +HYDR-2763 PO; +METO25TA4 PO; +MIRT15TA3 PO; +PRED20TA PO; -REGADENOSON 0.4 MG/5 ML DISP.SYRIN. IV ONE; +SENN8.6T11 PO
--- NOTE | 2019-10-31 12:34 | RAD ---
MRI Brain with and without contrast History: Squamous cell cancer left lung Technique: Multiplanar, multi sequential pre and postcontrast MR imaging was performed of the brain. Comparison: None Findings: There is no evidence of recent infarct or cytotoxic edema. Ventricular size is within normal limits. There is mild generalized supratentorial involutional change.There is no significant midline shift, intraaxial mass effect, or focal abnormal extra-axial fluid collection. There is very mild T2 and FLAIR hyperintense signal of the supratentorial periventricular white matter bilaterally. There is no nodular parenchymal or leptomeningeal enhancement. There is preservation of the major intracranial flow-voids at the skull base. The cerebellar tonsils are normal in location. There is no significant abnormality of the pineal gland or pituitary gland. Paranasal sinuses are overall aerated. The mastoid air cells are aerated. There is mild nonspecific heterogeneity of the marrow of the nonexpanded clivus. There is enlargement/hypertrophy of the right inferior turbinate with associated mucosal thickening. Impression: 1. There is no abnormal intracranial enhancement. 2. Mild T2 and FLAIR hyperintense signal of the supratentorial parenchyma is nonspecific, more commonly due to chronic microvascular ischemic disease in a patient this age. There is mild generalized supratentorial involutional change. 3. There is enlargement/hypertrophy of the right inferior turbinate. Electronically signed by: Armen Rutledge MD (10/31/2019 12:31 PM) [facility]
--- NOTE | 2019-11-03 19:52 | RAD ---
EXAM: PET W CT SKULL TO MIDTHIGH EXAM DATE: 10/31/2019 INDICATION: Lung cancer restaging. RADIOPHARMACEUTICAL: 14.4 mCi of F-18 Fluorodeoxyglucose (FDG) I.V. via the right forearm. TECHNIQUE: Patient weight: 118 pounds. Following at least four-hour fasting, the patient's blood glucose was 117 mg/dl. Approximately 1 hour after administration of FDG, overlapping emission scanning was performed from the orbital meatal line through the pelvis. A low-dose CT was performed for attenuation correction purposes and anatomic localization. Fused images of PET and CT were reviewed. Any standardized uptake values (SUV) reported are maximum values within a volume region of interest, expressed in gm/ml. COMPARISON: PET CT of 01/09/2019, chest CT of 09/09/2019. FINDINGS: Unless otherwise specified, findings described as new on this exam refer to an interval change from the prior PET/CT study. PET: Head and neck show 2 new nodules in the skin in the posterior neck and right lower neck respectively showing max SUV of 15.1 and 13.1. The chest shows a hypermetabolic oval mass in the subcutaneous soft tissues superficial to the left scapula showing a max SUV of 13.3. Left hilar mass shows FDG uptake to max SUV of 20.4. Multiple new or enlarged hypermetabolic nodules. For reference, an anteromedial right lung nodule shows a max SUV 5.2 (image 102 of series 4). Pattern of cardiac uptake shows rounded, discontinuous masslike uptake including 3 such foci of uptake in the left ventricular free wall and one in the interventricular septum. From the apex to base in counter clockwise order, these show max SUV of 13.7, 17.8, 14.1 and 22.5. Left adrenal mass is new from prior PET/CT and shows max SUV 15.8. New nodule in the subcutaneous fat overlying the right lower rectus abdominis muscle shows max SUV of 6.44. Right gluteus medius activity could reflect registration artifact but shows uptake to max SUV of 14.3. New activity in the region of the left seminal vesicle shows a max SUV of 23.3. Numerous hypermetabolic osteolytic osseous lesions, new from the previous exam. Notable among these include: Left superior C6 osteolytic lesion max SUV 13.0 right humeral head lesion max SUV 12.6 Left fifth rib lesion near the costotransverse junction max SUV 7.7. T8 uptake to max SUV of 15.3. Expansile osteolytic mass in the inferior right sternal body max SUV of 31.6 Anterior inferior left expansile osteolytic rib lesion max SUV 29.7. Right L5 pedicle uptake to max SUV of 14.1 Left iliac lesion adjacent to the sacroiliac joint max SUV of 9.31 Left iliac crest osteolytic lesion max SUV of 11.6 Left ischial uptake to max SUV of 19.5. CT: No enlarged lymph nodes. Lobar atelectasis left upper lobe with peripheral low density suggesting a loculated effusion. Centrilobular emphysema. Status post prior prostatectomy and bilateral pelvic dilip dissection. Extensive expansile osteosclerosis of the sternum, medial clavicles and anterior ribs bilaterally. Right hydrocele. IMPRESSION: Significant interval disease progression from the last PET/CT scan with extensive involvement of the left adrenal gland, bones and cutaneous soft tissues as well as interval enlargement in the left upper lobe lung mass with hilar and mediastinal involvement. Electronically signed by: Jen Shukla MD (11/03/2019 7:49 PM) [id number]
== END | disposition home or self-care (01) ==
LOC: PETSC 12:01
PROVIDERS: ATTEND Radiology Radiation Oncology
DX: C34.92 Malignant neoplasm of unspecified part of left bronchus or lung (principal); J98.11 Atelectasis; J43.2 Centrilobular emphysema; Q78.2 Osteopetrosis; N43.2 Other hydrocele; J34.3 Hypertrophy of nasal turbinates; R91.8 Other nonspecific abnormal finding of lung field; I67.82 Cerebral ischemia
CPT/HCPCS: 70553; 78815; A9552; A9575

== ENCOUNTER 2019-11-20 09:09 | Emergency (ER) | payer MEDICARE ==
[~2019-11-20] VITALS: Ht 175.3 cm; Wt 51.8 kg
[~2019-11-20 09:09] MED LIST changes: -GADOTERATE 7.5 MMOL/15ML VIAL. IVP ONE
--- NOTE | 2019-11-20 09:51 | PHYS DOC ---
Past Medical History Smoking Status: Former Smoker Adult General Chief Complaint Chief Complaint: SHORTNESS OF BREATH HPI HPI Patient is a 69 year old [m with progrssive sob x 2 days today it was 78 on 2 liters this morning, hard to get up over 88 with ambuloation it would go right back down he tells me. on further questioning he does say that he thinks he does better with a different type of oxygen tubing. pt was due for radiation today strated last week, gets it five days a week. 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 no fever. a very mild cough phlegm in the morning longstanding. no contacts with coronavirus. lives in [facility]. chest pain from the radiation once in awhile "well thats what they told me" "joy got a collapsed lung and it might be that too" on eliquis. for afib. Review of Systems Review of Systems Constitutional: Denies fever or chills [] Eyes: Denies change in visual acuity, redness, or eye pain [] HENT: Denies nasal congestion or sore throat [] Respiratory: : Denies dysuria or hematuria [] Musculoskeletal: Denies back pain or joint pain [] Integument: known skin lesions. All other systems were reviewed and found to be within normal limits, except as documented in this note. Allergies Allergies Allergies Coded Allergies Type Severity Reaction Last Updated Verified red dye Allergy Intermediate 10/22/19 Yes Physical Exam Physical Exam Constitutional: Well developed, well nourished, cachectic HENT: Normocephalic, atraumatic, bilateral external ears normal, oropharynx moist, no oral exudates, nose normal. [] Eyes: PERRLA, EOMI, conjunctiva normal, no discharge. [] Neck: Normal range of motion, no tenderness, supple, no stridor. [] Cardiovascular:Heart rate regular rhythm, no murmur [] Lungs & Thorax: decreased breath sounds upper left lung field.] Abdomen: Bowel sounds normal, soft, no tenderness, no masses, no pulsatile masses. [] Skin: multiple skin lesions c/w known malignancy. Back: No tenderness, no CVA tenderness. [] Extremities: No tenderness, no cyanosis, no clubbing, ROM intact, no edema. [] Neurologic: Alert and oriented X 3, normal motor function, normal sensory function, no focal deficits noted. [] Psychologic: Affect normal, judgement normal, mood normal. [] Current Patient Data Vital Signs Vital Signs Date Time Temp Pulse Resp B/P (MAP) Pulse Ox O2 Delivery O2 Flow Rate FiO2 11/20/19 11:19 68 19 101/58 (72) 99 Nasal Cannula 2.0 11/20/19 09:12 98.3 98.3 Lab Values Laboratory Tests Test 11/20/19 09:30 White Blood Count 7.3 x10^3/uL (4.0-11.0) Red Blood Count 3.57 x10^6/uL (4.30-5.70) L Hemoglobin 10.4 g/dL (13.0-17.5) L Hematocrit 30.9 % (39.0-53.0) L Mean Corpuscular Volume 87 fL (79-100) Mean Corpuscular Hemoglobin 29 pg (25-35) Mean Corpuscular Hemoglobin Concent 34 g/dL (31-37) Red Cell Distribution Width 14.0 % (11.5-14.5) Platelet Count 455 x10^3/uL (140-400) H Neutrophils (%) (Auto) 86 % (31-73) H Lymphocytes (%) (Auto) 4 % (24-48) L Monocytes (%) (Auto) 8 % (0-9) Eosinophils (%) (Auto) 1 % (0-3) Basophils (%) (Auto) 1 % (0-3) Neutrophils # (Auto) 6.3 x10^3/uL (1.8-7.7) Lymphocytes # (Auto) 0.3 x10^3/uL (1.0-4.8) L Monocytes # (Auto) 0.6 x10^3/uL (0.0-1.1) Eosinophils # (Auto) 0.1 x10^3/uL (0.0-0.7) Basophils # (Auto) 0.0 x10^3/uL (0.0-0.2) Segmented Neutrophils % 85 % (35-66) H Band Neutrophils % 3 % (0-9) Lymphocytes % 5 % (24-48) L Monocytes % 4 % (0-10) Eosinophils % 2 % (0-5) Basophils % 1 % (0-3) Platelet Estimate Increased (ADEQUATE) Prothrombin Time 14.8 SEC (11.7-14.0) H Prothrombin Time INR 1.2 (0.8-1.1) H Sodium Level 139 mmol/L (136-145) Potassium Level 4.4 mmol/L (3.5-5.1) Chloride Level 96 mmol/L (98-107) L Carbon Dioxide Level 35 mmol/L (21-32) H Anion Gap 8 (6-14) Blood Urea Nitrogen 18 mg/dL (8-26) Creatinine 0.9 mg/dL (0.7-1.3) Estimated GFR (Cockcroft-Gault) 83.4 BUN/Creatinine Ratio 20 (6-20) Glucose Level 155 mg/dL (70-99) H Calcium Level 9.5 mg/dL (8.5-10.1) Total Bilirubin 0.2 mg/dL (0.2-1.0) Aspartate Amino Transferase (AST) 13 U/L (15-37) L Alanine Aminotransferase (ALT) 23 U/L (16-63) Alkaline Phosphatase 72 U/L (46-116) Troponin I Quantitative < 0.017 ng/mL (0.000-0.055) RS-[id number]-[id number]-Type Natriuretic Peptide 2971 pg/mL (0-124) H Total Protein 7.4 g/dL (6.4-8.2) Albumin 2.3 g/dL (3.4-5.0) L Albumin/Globulin Ratio 0.5 (1.0-1.7) L Laboratory Tests 11/20/19 09:30 Laboratory Tests 11/20/19 09:30 EKG EKG nsr no ischemia or stemi interpreted by me time of encounter.[] Radiology/Procedures Radiology/Procedures []IMPRESSION: 1. Complete atelectasis left upper lobe which is unchanged from the recent PET/CT study. 2. No new infiltrates. Electronically signed by: Caleb Milian MD (11/20/2019 10:33 AM) [id number] DICTATED and SIGNED BY: CALEB MILIAN MD DATE: 11/20/19 1033 Course & Med Decision Making Course & Med Decision Making Pertinent Labs and Imaging studies reviewed. (See chart for details) [] 69-year-old male with history of probably a primary lung cancer with stage IV disease squamous cell cancer getting radiation at this time presenting with shortness of breath he is on home oxygen he does have a known left upper lobe collapse. He presented complaining of increasing shortness of breath throughout the day today. In the emergency room as soon as we connected into our oxygen he was saturating 98% on 2 L with no respiratory distress at all. We actually walked him around the emergency room and he remained in the mid to high 90s with no respiratory distress he said he felt a lot better. Chest x-ray imaging does show a similar left upper lobe collapse to his previous PET scan that he had back in October. He said he has had no fever. Labs are fairly stable BNP is elevated is fairly nonspecific overall no signs of acute pulmonary edema. I offered to consult his assembler for puller over hand but patient states that he is feeling much much better and he really wants to go home he said he can call him later. I think that is reasonable. At this point time the patient has known upper lobe collapse he was short of breath but on arrival to the emergency room and throughout a 2-hour visit he has had no symptoms really he is very stable without any acute dyspnea. He likely was having intermittent shortness of breath related to his known lung malignancy was given strict return precautions to call his primary team or come back here for any fever worsening shortness of breath cough or other new symptoms. Dragon Disclaimer Dragon Disclaimer This electronic medical record was generated, in whole or in part, using a voice recognition dictation system. Departure Departure Impression: Primary Impression: Mass of left lung Disposition: HOME, SELF-CARE Condition: STABLE Referrals: GENARO WU MD (PCP) PAULA FERNANDEZ MD Nov 20, 2019 09:51
[2019-11-20 10:03] LABS: BASO % 1 % (0-3); EOS # 0.1 x10^3/uL (0.0-0.7); EOS % 1 % (0-3); HEMATOCRIT 30.9 % (39.0-53.0); HEMOGLOBIN 10.4 g/dL (13.0-17.5); LYMPH # 0.3 x10^3/uL (1.0-4.8); LYMPH % 4 % (24-48); MEAN CORPUSCULAR HEMOGLOBIN 29 pg (25-35); MEAN CORPUSCULAR HGB CONC 34 g/dL (31-37); MEAN CORPUSCULAR VOLUME 87 fL (79-100); MONO # 0.6 x10^3/uL (0.0-1.1); MONO % 8 % (0-9); NEUT # 6.3 x10^3/uL (1.8-7.7); NEUT % 86 % (31-73); PLATELET COUNT 455 x10^3/uL (140-400); RED BLOOD COUNT 3.57 x10^6/uL (4.30-5.70); WHITE BLOOD COUNT 7.3 x10^3/uL (4.0-11.0)
[2019-11-20 10:12] LABS: PROTHROMBIN TIME PATIENT 14.8 SEC (11.7-14.0)
[2019-11-20 10:17] LABS: CALCIUM 9.5 mg/dL (8.5-10.1); CREATININE 0.9 mg/dL (0.7-1.3); GFR 83.4; POTASSIUM 4.4 mmol/L (3.5-5.1)
[2019-11-20 10:23] LABS: ALBUMIN 2.3 g/dL (3.4-5.0); ALBUMIN/GLOBULIN RATIO 0.5 (1.0-1.7); TOTAL BILIRUBIN 0.2 mg/dL (0.2-1.0); TOTAL PROTEIN 7.4 g/dL (6.4-8.2)
--- NOTE | 2019-11-20 10:24 | EKG ---
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
--- NOTE | 2019-11-20 10:36 | RAD ---
AP chest. HISTORY: Short of breath, lung cancer AP view was taken of the chest. There is complete atelectasis of the left upper lobe. Hilar mass noted on the PET/CT scan is not well seen due to the upper lobe atelectasis. Right lung appears clear. Heart is normal in size. There is mild scoliosis. IMPRESSION: 1. Complete atelectasis left upper lobe which is unchanged from the recent PET/CT study. 2. No new infiltrates. Electronically signed by: Caleb Pathak MD (11/20/2019 10:33 AM) [id number]
[2019-11-20 11:19] VITALS: BP 101/58
[2019-11-20 11:22] LABS: % BANDS 3 % (0-9); % BASOS 1 % (0-3); % EOS 2 % (0-5); % LYMPHS 5 % (24-48); % MONOS 4 % (0-10); % SEGS 85 % (35-66); PLT ESTIMATE INCREASED (ADEQUATE)
== END 2019-11-20 11:47 | disposition home or self-care (01) ==
LOC: ER 09:09
DX: R91.8 Other nonspecific abnormal finding of lung field (principal); R06.02 Shortness of breath; Z87.891 Personal history of nicotine dependence; Z85.118 Personal history of other malignant neoplasm of bronchus and lung; Z91.041 Radiographic dye allergy status
CPT/HCPCS: 36415; 71045; 80053; 83880; 84484; 85007; 85025; 85610; 93005; 99285

== ENCOUNTER → 2019-12-17 | Outpatient (CLI) | payer MEDICARE ==
[2019-11-20 11:19] VITALS: BP 101/58
[~2019-12-17] MED LIST changes: +FENT1PAT17 TD; +HYDR-2769 PO; +PRED5TAB PO
--- NOTE | 2019-12-17 11:23 | RAD ---
Left scapula 2 views INDICATION: Lung cancer and bone metastasis. COMPARISON: PET CT scan of 10/31/2019 TECHNIQUE: AP and scapular Y views of the left scapula were obtained. FINDINGS: Moderately advanced degenerative arthrosis of the acromioclavicular joint is present. The scapula and visualized portion shows no fracture or aggressive osseous lesions. There is pleural-parenchymal scarring at the left lung apex. The hotspot of activity evident on the comparison study above the left scapula shows no definite radiographic correlate on the current exam. IMPRESSION: Left acromioclavicular degenerative spondylosis. Otherwise no acute findings in the left scapula on plain film. More detailed evaluation by CT or MRI could be considered if clinically warranted. Electronically signed by: Jen Shukla MD (12/17/2019 11:20 AM) [id number]
== END ==
LOC: RAD 10:50
PROVIDERS: ATTEND Radiology Radiation Oncology
DX: C79.51 Secondary malignant neoplasm of bone (principal); M19.012 Primary osteoarthritis, left shoulder; J98.4 Other disorders of lung
CPT/HCPCS: 73010; 77387; 77412

== ENCOUNTER → 2019-12-23 | Outpatient (CLI) | payer MEDICARE ==
[~2019-12-23] MED LIST changes: +IOHEXOL 300 MG/ML 100ML VIAL. IV ONE
--- NOTE | 2019-12-23 13:09 | KCIC ---
CT of the left scapula with contrast Indication: Lung cancer with bone metastases. Exposure: One or more of the following individualized dose reduction techniques were utilized for this examination: 1. Automated exposure control 2. Adjustment of the mA and/or kV according to patient size 3. Use of iterative reconstruction technique. Technique: Contiguous axial images obtained through the left scapula with multiplanar reformatted images. FINDINGS: No evidence of bone lesion or aggressive bone destruction both the left scapula, or other partially visualized adjacent bones. No evidence of acute fracture. The visualized left upper lung demonstrates abnormal pleural and parenchymal density, which appears to have progressed since the PET/CT scan of 10/31/2019. No other definite soft tissue abnormality in the area of coverage. Degenerative changes at the acromioclavicular joint with undersurface osteophytes. The previous PET/CT scan demonstrated an area of increased activity just superior to the left scapula, appears to be within the soft tissues and probably not adequately evaluated on this exam. IMPRESSION: 1. No evidence of bone lesion or bone destruction involving the left scapula. 2. Abnormal pleural and parenchymal opacity within the visualized left lung, at least some of which appears new since prior PET/CT scan. This could represent inflammatory or infectious etiology, versus neoplasm. 3. If further evaluation of the area of activity on PET CT scan superior to the left scapula is warranted, consider MR of the suprascapular soft tissues. Electronically signed by: Rusty Rowe MD (12/23/2019 1:07 PM) [place] [id number]
== END ==
LOC: KCIC MRI 08:24
PROVIDERS: ATTEND Radiology Radiation Oncology
DX: C34.12 Malignant neoplasm of upper lobe, left bronchus or lung (principal); C79.51 Secondary malignant neoplasm of bone; C44.92 Squamous cell carcinoma of skin, unspecified; C61 Malignant neoplasm of prostate; R91.8 Other nonspecific abnormal finding of lung field; M25.719 Osteophyte, unspecified shoulder
CPT/HCPCS: 73201; Q9967

== ENCOUNTER 2019-12-31 06:48 | Outpatient (CLI) | payer MEDICARE ==
[2019-12-31] VITALS (7 sets, daily range): BP systolic 102–129; BP diastolic 62–74
[~2019-12-31] VITALS: Ht 175.3 cm; Wt 49.9 kg
[~2019-12-31 06:48] MED LIST changes: -IOHEXOL 300 MG/ML 100ML VIAL. IV ONE
[2019-12-31 07:41] LABS: BASO # 0.1 x10^3/uL (0.0-0.2); BASO % 1 % (0-3); EOS # 0.1 x10^3/uL (0.0-0.7); EOS % 1 % (0-3); HEMATOCRIT 28.8 % (39.0-53.0); HEMOGLOBIN 9.4 g/dL (13.0-17.5); LYMPH # 0.3 x10^3/uL (1.0-4.8); LYMPH % 4 % (24-48); MEAN CORPUSCULAR HEMOGLOBIN 29 pg (25-35); MEAN CORPUSCULAR HGB CONC 33 g/dL (31-37); MEAN CORPUSCULAR VOLUME 88 fL (79-100); MONO # 0.7 x10^3/uL (0.0-1.1); MONO % 8 % (0-9); NEUT # 7.9 x10^3/uL (1.8-7.7); NEUT % 87 % (31-73); PLATELET COUNT 407 x10^3/uL (140-400); RED BLOOD COUNT 3.28 x10^6/uL (4.30-5.70); RED CELL DISTRIBUTION WIDTH 14.6 % (11.5-14.5); WHITE BLOOD COUNT 9.1 x10^3/uL (4.0-11.0)
[2019-12-31] MEDS ORDERED: HYDR2TAB31 PO (07:43)
[2019-12-31] MEDS ORDERED: TEST200V3 IM (07:43)
[2019-12-31 07:50] LABS: PROTHROMBIN TIME PATIENT 16.6 SEC (11.7-14.0)
[2019-12-31] MEDS ORDERED: FENT1PAT19 TP (08:09)
[2019-12-31] MEDS ORDERED: LIDOCAINE 1%/EPI 1:100,000 20 ML VIAL. ONE ×2 (08:19→08:25)
[2019-12-31] MEDS ORDERED: fentaNYL PF VIAL 100 MCG/2 ML VIAL ONE (08:22)
[2019-12-31] MEDS ORDERED: MIDAZOLAM HCL/PF 2 MG/2 ML VIAL. ONE (08:22)
[2019-12-31] MEDS ORDERED: ceFAZolin SODIUM IV Push 1 GM VIAL. IVP ONE (08:22)
[2019-12-31] MEDS ORDERED: HEPARIN PF 500 UNIT/5 ML DISP.SYRIN. IVP ONE ×2 (08:25→08:26)
[2019-12-31 08:40] LABS: % BASOS 1 % (0-3); % EOS 1 % (0-5); % LYMPHS 3 % (24-48); % MONOS 4 % (0-10); % SEGS 91 % (35-66)
[2019-12-31 08:41] LABS: PLT ESTIMATE INCREASED (ADEQUATE)
[2019-12-31] MEDS: LIDOCAINE 1%/EPI 1:100,000 20 ML VIAL. INJ ONE (09:08)
[2019-12-31] MEDS: MIDAZOLAM HCL/PF 2 MG/2 ML VIAL. IV ONE (09:09)
[2019-12-31] MEDS: ceFAZolin SODIUM IV Push 1 GM VIAL. IVP ONE (09:09)
[2019-12-31] MEDS: fentaNYL PF VIAL 100 MCG/2 ML VIAL IV ONE (09:10)
[2019-12-31] MEDS: HEPARIN PF 500 UNIT/5 ML DISP.SYRIN. IVP ONE (09:11)
--- NOTE | 2019-12-31 10:41 | RAD ---
Procedure: Ultrasound and fluoroscopically guided placement of right internal jugular power port.. 12/31/2019 8:37 AM Clinical Indication: PORT PLACEMENT SQUAMOS CELL LUNG CA Sedation: Conscious sedation was administered for 37 minutes. The patient was monitored by a qualified independent observer throughout the time of sedation. Please refer to the medical record for exact doses of medications utilized to achieve moderate sedation. Fluoroscopy time: 0.8 minutes Dose area product: 1 Gycm2 Consent: The procedure was explained in its entirety to the patient or the patients designated loss prevention representative by a member of the treatment team, including a discussion of the risks, benefits and commonly accepted alternatives to the procedure, as well as the expected consequences of no therapy whatsoever. Discussion of the risks included, but was not limited to, those that are most frequent and those that are rare but possibly severe or life-threatening, as well as the possibility of unforeseen complications. Technique and Findings: All elements of maximal sterile barrier technique including the use of a cap, mask, sterile gown, sterile gloves, large sterile sheet, appropriate hand hygiene, and 2% chlorhexidine for cutaneous antisepsis (or acceptable alternative antiseptic per current guidelines) were followed for this procedure. Following informed consent, and a timeout procedure, the patient was prepped and draped in the usual sterile fashion. Ultrasound interrogation of the right neck revealed patency and compressibility of the right internal jugular vein. A 21-gauge micropuncture was then used to gain access to this vein under ultrasound guidance. A hard copy ultrasound image was recorded. The needle was exchanged over a wire for a sheath. A 1 inch incision was made several centimeters inferior to the venotomy site. A catheter was tunneled from this site dermatotomy site in the neck. Catheter was advanced through peel-away sheath such that its tip was in the proximal right atrium with the patient supine. The catheter was trimmed to length and connected to the port reservoir. The port was found to flush and aspirate normally. The wound was closed in layers using 4-0 Vicryl suture. Sterile dressings were applied. Impression: Successful ultrasound and fluoroscopically guided placement of a right internal jugular PowerPort
== END 2019-12-31 10:40 | disposition home or self-care (01) ==
LOC: INTRAD 06:48
PROVIDERS: ATTEND Internal Medicine Hematology & Oncology
DX: Z45.2 Encounter for adjustment and management of vascular access device (principal); C34.90 Malignant neoplasm of unspecified part of unspecified bronchus or lung; Z79.01 Long term (current) use of anticoagulants
CPT/HCPCS: 36415; 36561; 76937; 77001; 85025; 85610; 99152; 99153; C1751; C1892; J0690; J1642; J2250; J3010; J3490; 85007